=== PATIENT | male | born 1965 | race Caucasian/White ===

== ENCOUNTER → 2019-10-24 08:10 | Outpatient (BNVA) | payer MEDICARE, MEDICAID, SELFPAY | PROVIDERS: Family Provider Nurse Practitioner Family; PCP Nurse Practitioner Family; Visit Provider Nurse Practitioner Family | DX: R50.9 Fever, unspecified (principal); J06.9 Acute upper respiratory infection, unspecified; B97.89 Other viral agents as the cause of diseases classified elsewhere | CPT/HCPCS: 85025; 87081; 87804; 87880 ==

== ENCOUNTER → 2019-12-13 14:26 | Outpatient (BNVA) | payer MEDICARE, MEDICAID, SELFPAY | PROVIDERS: Family Provider Nurse Practitioner Family; PCP Nurse Practitioner Family; Visit Provider Nurse Practitioner Psychiatric/Mental Health | DX: F33.41 Major depressive disorder, recurrent, in partial remission (principal); F41.8 Other specified anxiety disorders; F41.1 Generalized anxiety disorder | CPT/HCPCS: 99213 ==

== ENCOUNTER → 2020-03-04 10:14 | Outpatient (BNVA) | payer MEDICARE, MEDICAID, SELFPAY | PROVIDERS: Family Provider Nurse Practitioner Family; PCP Nurse Practitioner Family; Visit Provider Nurse Practitioner | DX: K59.01 Slow transit constipation (principal); L25.9 Unspecified contact dermatitis, unspecified cause; G80.9 Cerebral palsy, unspecified; Z00.00 Encounter for general adult medical examination without abnormal findings; J30.2 Other seasonal allergic rhinitis; F41.1 Generalized anxiety disorder; Z13.6 Encounter for screening for cardiovascular disorders; Z12.5 Encounter for screening for malignant neoplasm of prostate; Z11.1 Encounter for screening for respiratory tuberculosis | CPT/HCPCS: 80053; 80061; 85025; G0103 ==

== ENCOUNTER → 2020-03-06 08:23 | Outpatient (BNVA) | payer MEDICARE, MEDICAID, SELFPAY | PROVIDERS: Family Provider Nurse Practitioner Family; PCP Nurse Practitioner Family; Visit Provider Nurse Practitioner | DX: K59.01 Slow transit constipation (principal) | CPT/HCPCS: 81000 ==

== ENCOUNTER 2020-04-08 18:15 | Inpatient (IN) | payer MEDICARE, MEDICAID, SELFPAY ==
[2020-04-08 18:16] VITALS: BP 122/88; PULSE 78; RESP 20; TEMP 36.7; O2SAT 91; BMI 21.7
--- NOTE | 2020-04-08 18:20 | XRR_ITS ---
PROCEDURE INFORMATION: Exam: XR Chest, 1 View Exam date and time: 04/08/2020 6:42 PM Age: 54 years old Clinical indication: Shortness of breath; Additional info: SOB TECHNIQUE: Imaging protocol: XR of the chest Views: 1 view. COMPARISON: CR Chest 1 view [id number] 07/17/2019 8:14 AM FINDINGS: Lungs: Lungs are well aerated without a focal area of consolidation. Pleural space: Unremarkable. No pleural effusion. No pneumothorax. Heart/Mediastinum: The cardiac silhouette appears enlarged, some of which is magnification related to the AP projection. Bones/joints: Unremarkable. XR/XR chest 1V portable [id number] IMPRESSION: Lungs are well aerated without a focal area of consolidation.
--- NOTE | 2020-04-08 18:21 | ECG_ITS ---
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 Measurements Intervals [place] Rate: 80 P: 35 OH: 142 QRS: -85 QRSD: 95 T: 51 QT: 378 QTc: 439 Interpretive Statements SINUS RHYTHM PATTERN CONSISTENT WITH PULMONARY DISEASE LEFT ANTERIOR FASCICULAR BLOCK [QRS AXIS <= -45, QR IN I, RS IN II] Compared to ECG 07/13/2019 04:36:00 Left anterior fascicular block now present Sinus bradycardia no longer present Left-axis deviation no longer present Electronically Signed On 04-09-2020 16:53:28 CDT by Torres Martini M.D. [email or web address]
--- NOTE | 2020-04-08 18:40 | W.ED.SOB ---
HPI - SOB/Dyspnea General: Chief Complaint: Shortness of Breath/Dyspnea Stated Complaint: POSS ASPIRATION Time Seen by Provider: 04/08/20 18:20 History of Present Illness: HPI Narrative: 54-year-old male with longstanding developmental delay and cerebral palsy. He presents with a fever of 100.9, cough, and shortness of breath. He told the staff members I do not feel well . Cough does not seem to be productive. He does have a history of aspiration. No known contact with COVID-19 positive patient. MD elicited complaint: shortness of breath and cough Pertinent past history: aspiration Onset (ago): hour(s) Context: recent illness Timing: constant Severity: moderate Relieving factors: oxygen Known history of: aspiration pneumonia Associated symptoms: Reports chest congestion, cough and fever(s); Deny chest pain, dizziness or nausea Treatment prior to arrival: bronchodilator Review of Systems Const: Reports: fever(s) and chills Eyes: Denies: change in vision or blurry vision ENMT: Denies: swelling of lips/tongue, epistaxis, post nasal drip or sinus pain Card: Denies: chest pain Resp: Reports: chest congestion GI: Denies: nausea : Denies: difficulty urinating, dysuria or hematuria Musc: Denies: neck pain or back pain Skin/Breast: Denies: rash, pruritus or erythema Neuro: Denies: headache(s) or dizziness Psych: Denies: anxiety PFSH ED PFSH: Medical History (Updated 04/08/20 @ 22:16 by Jadon Jones DO) Acute contact dermatitis Alopecia areata Cerebral palsy Chronic seasonal allergic rhinitis Generalized anxiety disorder Hiatal hernia Major depressive disorder, recurrent episode, in partial remission with anxious distress Slow transit constipation Surgical History (Updated 03/04/20 @ 10:12 by HARVINDER Finch) History of cholecystectomy 07/20/19 at [facility] [place] History of testicular surgery Family History Other Cancer Stroke Social History Smoking and tobacco status: never smoked Second hand smoke exposure: No Smoking risk assessment/counseling performed?: No Alcohol intake: never Desire information about alcohol rehabilitation?: No Counseling given: No Desire information about substance/drug rehabilitation?: No Counseling given: No Adopted: No Caregiver/support person: Yes Lives independently: No Household members: caregiver Housing: House Marital status: Single Number of children: 0 service: No Current occupational status: unemployed Pets and animals: Yes Pets & animals: cat(s) History of recent travel: No Sexually active: No Current gender identity: Female Physical Exam Const: GENERAL APPEARANCE: well developed ORIENTATION/CONSCIOUSNESS: Yes oriented to person and Yes oriented to place HENMT: COMMON NORMALS: normocephalic, external ears normal and Normal external nose present HEAD & SCALP: normocephalic NOSE: Normal external nose present and No nasal discharge present EXTERNAL EAR: Yes external ears normal MOUTH: tongue normal Eye: COMMON NORMALS: Equal, round and reactive pupils present, EOMs intact bilaterally and conjunctivae normal EYELID: eyelids normal CONJUNCTIVA: Yes conjunctivae normal PUPIL: Yes Equal, round and reactive pupils present Neck/C-Spine: GENERAL: No tracheal deviation Chest: COMMONS NORMALS: normal inspection of the chest CHEST: No tenderness Resp: COMMON NORMALS: clear to auscultation bilaterally EFFORT & INSPECTION: No tachypneic, No respiratory distress, No retractions, No uses accessory muscles and No tracheal deviation AUSCULTATION: clear to auscultation bilaterally, no rhonchi, no wheezes and diminished lung sounds Cardio: COMMON NORMALS: regular rate and regular rhythm RATE: regular rate RHYTHM: regular rhythm HEART SOUNDS: no murmurs PERIPHERAL PULSES: radial pulses present GI: INSPECTION: No abdominal distension AUSCULTATION: No Hyperactive bowel sounds present and No Hypoactive bowel sounds present PALPATION: No Guarding due to palpation present (GI) and No Rigid due to palpation PERCUSSION: no dullness to percussion and no tympanic to percussion Neuro: SENSORIUM/ORIENTATION: Yes oriented to person and Yes oriented to place Psych: OTHER: Baseline mental status Skin: COMMON NORMALS: no rashes or lesions noted GENERAL SKIN EXAM: no rashes or lesions noted Course Vital Signs: Vital signs: Vital Signs Temperature 98.2 F 04/08/20 19:59 Pulse Rate 89 04/08/20 21:40 Respiratory Rate 18 04/08/20 21:40 Blood Pressure 103/67 04/08/20 21:40 Pulse Oximetry 93 04/08/20 21:40 MDM - SOB/Dyspnea MDM Narrative: Medical decision making narrative: 54-year-old male presents significantly hypoxic. He has a history of aspiration. He has a right upper lobe infiltrate/pneumonitis on chest x-ray. He has an elevated white blood cell count. His d-dimer is negative. Procalcitonin is pending. Other laboratory is benign. He has been given Levaquin in the ER. Because of the severity of his hypoxia with infiltrate, temperature, and shortness of breath, he will undergo COVID testing and will be on COVID precautions until his test returns. Lab Data: Labs: Lab Results 04/08/20 04/08/20 04/08/20 Range/Units 18:33 18:33 18:33 WBC 11.6 H (4.0-10.0) 10^3/ uL RBC 5.76 H (4.1-5.3) 10^6/u L Hgb 16.2 (11.7-16.6) g/dL Hct 50.5 (42.0-52.0) % MCV 87.7 (80-94) fL MCH 28.1 (28.0-34.0) pg MCHC 32.1 (30.0-36.0) g/dL RDW 13.7 (12.1-15.1) % Plt Count 377 (130-400) 10^3/c mm MPV 10.1 (7.4-10.4) fL Neut % (Auto) 77.9 % Lymph % (Auto) 12.0 % Mcdowell % (Auto) 6.7 % Eos % (Auto) 2.2 % Baso % (Auto) 0.8 % Neut # (Auto) 9.1 H (1.8-7.7) 10^3/u L Lymph # (Auto) 1.4 (0.8-4.8) 10^3/u L Mcdowell # (Auto) 0.8 (0.2-0.9) 10^3/u L Eos # (Auto) 0.3 (0.0-0.8) 10^3/u L Baso # (Auto) 0.1 (0.0-0.1) 10^3/u L Nucleated RBC % (a uto) 0 % Nucleated RBCs # 0.0 /100WBC D-Dimer (0-0.59) ug/mIFE U Specimen Type Sample Site ABG pH (7.35-7.45) ABG pCO2 (35-45) mmHg ABG pO2 (80.0-100.0) mmH g ABG HCO3 (22-26) mmol/L ABG Base Excess (-2.0-2.0) mmol/ L Bryant Test Hematocrit (42-52) % Hgb O2 Saturation (95-100) % Carboxyhemoglobin (0.4-20.1) %THgb Methemoglobin (0.4-1.5) % Total Hemoglobin (14-18) g/dL O2 Delivery Device O2 Liters/Min % Activated Sludge Attendant ID Sodium 140 (136-145) mmol/L Potassium 4.7 (3.5-5.1) mmol/L Chloride 100 (98-107) mmol/L Carbon Dioxide 29 (22-29) mmol/L Anion Gap 15.7 (5-19) BUN 16 (6-20) mg/dL Creatinine 0.8 (0.7-1.2) mg/dL GFR Calculation 100.7 (90-130) mL/min Glucose 96 (65-115) mg/dL Calculated Osmolal ity 286 (285-295) mOsm/k g Lactic Acid 0.9 (0.5-2.2) mmol/L Calcium 9.9 (8.5-10.5) mg/dL Total Bilirubin 0.4 (0.15-1.2) mg/dL AST 30 (0-40) U/L ALT 33 (0-41) U/L Alkaline Phosphata se 153 H (40-130) IU/L Troponin T Baselin e (0-15) ng/L Troponin T 120 Min [place] (0-15) ng/L Delta Troponin T (0-10) ABS# NT-Pro-B Natriuret Pep 12 (0-125) pg/mL Total Protein 7.8 (6.6-8.7) g/dL Albumin 4.7 (3.5-5.2) g/dL Globulin 3.1 (1.3-4.6) g/dL 04/08/20 04/08/20 04/08/20 Range/Units 18:33 18:33 19:15 WBC (4.0-10.0) 10^3/ uL RBC (4.1-5.3) 10^6/u L Hgb (11.7-16.6) g/dL Hct (42.0-52.0) % MCV (80-94) fL MCH (28.0-34.0) pg MCHC (30.0-36.0) g/dL RDW (12.1-15.1) % Plt Count (130-400) 10^3/c mm MPV (7.4-10.4) fL Neut % (Auto) % Lymph % (Auto) % Mcdowell % (Auto) % Eos % (Auto) % Baso % (Auto) % Neut # (Auto) (1.8-7.7) 10^3/u L Lymph # (Auto) (0.8-4.8) 10^3/u L Mcdowell # (Auto) (0.2-0.9) 10^3/u L Eos # (Auto) (0.0-0.8) 10^3/u L Baso # (Auto) (0.0-0.1) 10^3/u L Nucleated RBC % (a uto) % Nucleated RBCs # /100WBC D-Dimer <= 0.27 (0-0.59) ug/mIFE U Specimen Type Arterial Sample Site Radial, left ABG pH 7.43 (7.35-7.45) ABG pCO2 38.9 (35-45) mmHg ABG pO2 102.0 H (80.0-100.0) mmH g ABG HCO3 25.7 (22-26) mmol/L ABG Base Excess 1.4 (-2.0-2.0) mmol/ L Bryant Test N/a Hematocrit 49.1 (42-52) % Hgb O2 Saturation 97.0 (95-100) % Carboxyhemoglobin 0.6 (0.4-20.1) %THgb Methemoglobin 0.8 (0.4-1.5) % Total Hemoglobin 16.0 (14-18) g/dL O2 Delivery Device Nc O2 Liters/Min 2.0 % Activated Sludge Attendant ID [id number] Sodium (136-145) mmol/L Potassium (3.5-5.1) mmol/L Chloride (98-107) mmol/L Carbon Dioxide (22-29) mmol/L Anion Gap (5-19) BUN (6-20) mg/dL Creatinine (0.7-1.2) mg/dL GFR Calculation (90-130) mL/min Glucose (65-115) mg/dL Calculated Osmolal ity (285-295) mOsm/k g Lactic Acid (0.5-2.2) mmol/L Calcium (8.5-10.5) mg/dL Total Bilirubin (0.15-1.2) mg/dL AST (0-40) U/L ALT (0-41) U/L Alkaline Phosphata se (40-130) IU/L Troponin T Baselin e 9 (0-15) ng/L Troponin T 120 Min [place] (0-15) ng/L Delta Troponin T (0-10) ABS# NT-Pro-B Natriuret Pep (0-125) pg/mL Total Protein (6.6-8.7) g/dL Albumin (3.5-5.2) g/dL Globulin (1.3-4.6) g/dL 04/08/20 Range/Units 20:12 WBC (4.0-10.0) 10^3/ uL RBC (4.1-5.3) 10^6/u L Hgb (11.7-16.6) g/dL Hct (42.0-52.0) % MCV (80-94) fL MCH (28.0-34.0) pg MCHC (30.0-36.0) g/dL RDW (12.1-15.1) % Plt Count (130-400) 10^3/c mm MPV (7.4-10.4) fL Neut % (Auto) % Lymph % (Auto) % Mcdowell % (Auto) % Eos % (Auto) % Baso % (Auto) % Neut # (Auto) (1.8-7.7) 10^3/u L Lymph # (Auto) (0.8-4.8) 10^3/u L Mcdowell # (Auto) (0.2-0.9) 10^3/u L Eos # (Auto) (0.0-0.8) 10^3/u L Baso # (Auto) (0.0-0.1) 10^3/u L Nucleated RBC % (a uto) % Nucleated RBCs # /100WBC D-Dimer (0-0.59) ug/mIFE U Specimen Type Sample Site ABG pH (7.35-7.45) ABG pCO2 (35-45) mmHg ABG pO2 (80.0-100.0) mmH g ABG HCO3 (22-26) mmol/L ABG Base Excess (-2.0-2.0) mmol/ L Bryant Test Hematocrit (42-52) % Hgb O2 Saturation (95-100) % Carboxyhemoglobin (0.4-20.1) %THgb Methemoglobin (0.4-1.5) % Total Hemoglobin (14-18) g/dL O2 Delivery Device O2 Liters/Min % Activated Sludge Attendant ID Sodium (136-145) mmol/L Potassium (3.5-5.1) mmol/L Chloride (98-107) mmol/L Carbon Dioxide (22-29) mmol/L Anion Gap (5-19) BUN (6-20) mg/dL Creatinine (0.7-1.2) mg/dL GFR Calculation (90-130) mL/min Glucose (65-115) mg/dL Calculated Osmolal ity (285-295) mOsm/k g Lactic Acid (0.5-2.2) mmol/L Calcium (8.5-10.5) mg/dL Total Bilirubin (0.15-1.2) mg/dL AST (0-40) U/L ALT (0-41) U/L Alkaline Phosphata se (40-130) IU/L Troponin T Baselin e (0-15) ng/L Troponin T 120 Min [place] 8.93 (0-15) ng/L Delta Troponin T -0.07 L (0-10) ABS# NT-Pro-B Natriuret Pep (0-125) pg/mL Total Protein (6.6-8.7) g/dL Albumin (3.5-5.2) g/dL Globulin (1.3-4.6) g/dL Discharge Plan Discharge Clinical Impression: Respiratory failure Qualifiers: Chronicity: acute Respiratory failure complication: hypoxia Qualified Code(s): J96.01 - Acute respiratory failure with hypoxia Pneumonia Qualifiers: Pneumonia type: due to unspecified organism Laterality: right Lung location: upper lobe of lung Qualified Code(s): J18.9 - Pneumonia, unspecified organism Condition: Stable Prescriptions: No Action (DME) Wrist Brace Misc See Rx Instructions .ROUTE .MEDSUPPLY Qty: 2 RF: 0 polyethylene glycol 3350 [Miralax] 17 gram/dose powder 17 gm PO QDAY RF: 0 docusate sodium [Colace] 100 mg capsule 100 mg PO BID RF: 0 albuterol sulfate [Ventolin HFA] 90 mcg/actuation HFA aerosol inhaler 2 puff INHALATION Q6H PRN (Reason: Shortness Of Breath) RF: 0 diphenhydramine HCl 25 mg capsule 50 mg PO BEDTIME RF: 0 buspirone 10 mg tablet 10 mg PO TID Qty: 90 RF: 6 fluoxetine [Prozac] 40 mg capsule 40 mg PO QAM Qty: 30 RF: 4 olanzapine [Zyprexa] 5 mg tablet 5 mg PO .bedtime Qty: 30 RF: 4 propranolol 10 mg tablet 10 mg PO TID Qty: 90 RF: 4 clonazepam [Klonopin] 1 mg tablet 1 mg PO TID Qty: 90 RF: 3 zolpidem [Ambien] 10 mg tablet 10 mg PO .bedtime Qty: 30 RF: 3 promethazine-DM 6.25-15 mg/5 mL Syrup 5 ml PO Q6H PRN (Reason: Cough) RF: 0 acetaminophen 325 mg Tablet 325 mg PO QID PRN (Reason: Pain) RF: 0 loratadine 10 mg Tablet 10 mg PO DAILY RF: 0 lactulose 10 gram/15 mL (15 mL) Solution 10 g PO DAILY PRN (Reason: Constipation) RF: 0 zinc oxide See Rx Instructions .ROUTE .COMPLEX RF: 0 Coding Level of Care Code ED Entry Level Programmer for Chg Fwd Exam Comprehensive
[2020-04-08 18:41] LABS: Basophils # 0.1 10^3/uL (0.0-0.1); Basophils % 0.8 %; Eosinophils # 0.3 10^3/uL (0.0-0.8); Eosinophils % 2.2 %; Hematocrit 50.5 % (42.0-52.0); Hemoglobin 16.2 g/dL (11.7-16.6); Lymphocytes # 1.4 10^3/uL (0.8-4.8); Mean Corpuscular HGB Conc 32.1 g/dL (30.0-36.0); Mean Corpuscular Hemoglobin 28.1 pg (28.0-34.0); Mean Corpuscular Volume 87.7 fL (80-94); Mean Platelet Volume 10.1 fL (7.4-10.4); Monocytes # 0.8 10^3/uL (0.2-0.9); Monocytes % 6.7 %; Neutrophils # 9.1 10^3/uL (1.8-7.7); Neutrophils % 77.9 %; Nucleated Red Blood Cells % 0 %; Platelet Count 377 10^3/cmm (130-400); Red Blood Count 5.76 10^6/uL (4.1-5.3); Red Cell Distribution Width 13.7 % (12.1-15.1); White Blood Count 11.6 10^3/uL (4.0-10.0)
[2020-04-08 18:56] LABS: Lactic Sepsis W/Reflex 0.9 mmol/L (0.5-2.2)
[2020-04-08 18:57] LABS: Troponin(5th) Baseline 9 ng/L (0-15)
[2020-04-08 19:04] LABS: Alanine Aminotransferase 33 U/L (0-41); Albumin Level 4.7 g/dL (3.5-5.2); Alkaline Phosphatase 153 IU/L (40-130); Anion Gap 15.7 (5-19); Aspartate Amino Transferase 30 U/L (0-40); Blood Urea Nitrogen 16 mg/dL (6-20); Calcium 9.9 mg/dL (8.5-10.5); Carbon Dioxide 29 mmol/L (22-29); Chloride 100 mmol/L (98-107); Globulin 3.1 g/dL (1.3-4.6); Glomerular Filtration Rate 100.7 mL/min (90-130); Glucose 96 mg/dL (65-115); NT Pro B Type Natriuretic Pept 12 pg/mL (0-125); Osmolality Calculated 286 mOsm/kg (285-295); Potassium 4.7 mmol/L (3.5-5.1); Sodium 140 mmol/L (136-145); Total Bilirubin 0.4 mg/dL (0.15-1.2); Total Protein 7.8 g/dL (6.6-8.7)
[2020-04-08 19:22] LABS: ABG PCO2 38.9 mmHg (35-45); ABG PH Result 7.43 (7.35-7.45); Arterial Blood Gas Hematocrit 49.1 % (42-52); Base Excess ABG 1.4 mmol/L (-2.0-2.0); Blood Gas Sample Site Radial, left; Blood Gas Sample Type Arterial; Carboxyhemoglobin 0.6 %THgb (0.4-20.1); HCO3 ABG 25.7 mmol/L (22-26); Methemoglobin 0.8 % (0.4-1.5); Oxygen Device NC
[2020-04-08 19:59] VITALS: BP 118/72; PULSE 88; RESP 24; TEMP 36.8; O2SAT 86
[2020-04-08 20:40] LABS: Troponin 5 2HR 8.93 ng/L (0-15)
[2020-04-08 20:47] LABS: Troponin 5 2HR Delta -0.07 ABS# (0-10)
[2020-04-08 21:01] LABS: D Dimer <= 0.27 ug/mIFEU (0-0.59)
[2020-04-08 21:24] VITALS: BP 121/86; PULSE 88; RESP 20; O2SAT 94
[2020-04-08] MEDS: levofloxacin-dextrose 5 % 750 MG/150 ML PREMIX 100 MG IV (21:39)
[2020-04-08 21:40] VITALS: BP 103/67; PULSE 89; RESP 18; O2SAT 93
[2020-04-08 23:30] VITALS: BP 111/70; PULSE 82; RESP 20; O2SAT 90
[2020-04-09] VITALS (14 sets, daily range): BP systolic 91–114; BP diastolic 55–72; PULSE 61–106; RESP 16–20; TEMP 36.2–37.4; O2SAT 91–98
[2020-04-09] MEDS: CLONazepam 1 mg Tablet PO ×4 (00:01→22:13)
--- NOTE | 2020-04-09 00:02 | PM.HP ---
Providers/Chief Complaint Admitting Physician: Suki Duckworth MD Chief Complaint: POSS ASPIRATION History of Present Illness Arturo Schwartz is a 54 year old male who presented from nursing home with low oxygen levels and concerned that he might of aspirated. According to his caregiver, he seemed okay when she first came to work today. Around 430 or so he however told her that he was not feeling well. She stated that he did not look very good at the time. He always has some degree of drainage but has had a productive cough more so than usual. She checked his oxygen saturations and they were running 88 to 92% on room air. Blood pressure was 106/54 and pulse was in the mid 60s. He had a low-grade fever at 100.9. She gave him some Tylenol and a breathing treatment but he did not really seem to do much better. He is generally not 1 who complains. After watching him for a while he was ultimately brought in for further evaluation. In the emergency room chest x-ray showed what looks to be right upper lobe infiltrate. He received some Levaquin. He is not normally on oxygen therapy but is currently requiring 3 L to maintain saturations in the low 90s. COVID testing was collected in the emergency room. He has not been witnessed vomiting but he has had an aspiration event and aspiration pneumonia in the past. At baseline, patient does talk but his speech can be a little hard to understand at times. He will not talk to you if he is not happy and he will laugh and smile if he likes your is happy. He can use a urinal if it is left within easy reach for him on the bedside rail. He can feed himself but will not eat soft or pur?ed foods. He is bedbound. He requires assistance with a lot of activities of daily living. Review of Systems General: Reports: 10 or more systems reviewed and unremarkable except in HPI and below Const: Reports: fever(s) and malaise ENMT: Reports: nasal discharge Card: Denies: chest pain Resp: Reports: dyspnea, productive cough and non-productive cough; Denies: hemoptysis GI: Reports: constipation; Denies: vomiting or diarrhea : Denies: dysuria Musc: Reports: deformity (Chronically contracted) Skin/Breast: Denies: sores or lesions Neuro: Reports: involuntary movements Psych: Reports: anxiety and depression Medications/Allergies Home Medications Medication Instructions Recorded Confirmed Last Taken Type albuterol sulfate 90 mcg/actuation 2 puff INHALATION Q6H PRN 10/24/19 04/08/20 Unknown History aerosol inhaler diphenhydramine HCl 25 mg capsule 50 mg PO BEDTIME cap 10/24/19 04/08/20 04/07/20 History docusate sodium 100 mg capsule 100 mg PO BID 10/24/19 04/08/20 04/08/20 History polyethylene glycol 3350 17 17 gm PO QDAY 10/24/19 04/08/20 04/08/20 History gram/dose oral powder buspirone 10 mg tablet 10 mg PO TID #90 tab 01/22/20 04/08/20 04/08/20 Rx clonazepam 1 mg tablet 1 mg PO TID #90 tab 01/22/20 04/08/20 04/08/20 Rx fluoxetine 40 mg capsule 40 mg PO QAM #30 cap 01/22/20 04/08/20 04/08/20 Rx olanzapine 5 mg tablet 5 mg PO .bedtime #30 tab 01/22/20 04/08/20 04/07/20 Rx propranolol 10 mg tablet 10 mg PO TID #90 tab 01/22/20 04/08/20 04/08/20 Rx zolpidem 10 mg tablet 10 mg PO .bedtime #30 tab 01/22/20 04/08/20 04/07/20 Rx arm brace #2 each 03/04/20 04/08/20 Unknown Rx acetaminophen 325 mg PO QID PRN 04/08/20 04/08/20 Unknown History lactulose 10 g PO DAILY PRN 04/08/20 04/08/20 Unknown History loratadine 10 mg PO DAILY 04/08/20 04/08/20 04/08/20 History promethazine-DM 5 ml PO Q6H PRN 04/08/20 04/08/20 Unknown History zinc oxide See Rx Instructions .ROUTE .COMPLEX 04/08/20 04/08/20 Unknown History Allergies Allergy/AdvReac Type Severity Reaction Status Date / Time No Known Allergies Allergy Verified 04/08/20 18:46 PFSH Acute PFSH: Medical History Acute contact dermatitis Alopecia areata Cerebral palsy Chronic seasonal allergic rhinitis Generalized anxiety disorder Hiatal hernia Major depressive disorder, recurrent episode, in partial remission with anxious distress Slow transit constipation Surgical History [place] [facility] [place] of [place] surgery Family History Other Cancer Stroke Social History Smoking and tobacco status: never smoked Second hand smoke exposure: No Smoking risk assessment/counseling performed?: No Alcohol intake: never Desire information about alcohol rehabilitation?: No Counseling given: No Desire information about substance/drug rehabilitation?: No Counseling given: No Adopted: No Caregiver/support person: Yes Lives independently: No Household members: caregiver Housing: House Marital status: Single Number of children: 0 service: No Current occupational status: unemployed Pets and animals: Yes Pets & animals: cat(s) History of recent travel: No Sexually active: No Current gender identity: Female Vitals/I&O/Wt Last Vital Signs Temp 98.2 F 04/08/20 19:59 Pulse 82 04/08/20 23:30 Resp 20 H 04/08/20 23:30 BP 111/70 04/08/20 23:30 Pulse Ox 90 04/08/20 23:30 Weight last 48 hrs Weight 53.977 kg Data : 04/09/20 03:23 04/09/20 03:23 Other Labs: Laboratory Tests 04/08/20 18:33 D-Dimer <= 0.27 Liver Function 04/08/20 04/09/20 Range/Units 18:33 03:23 Total Bilirubin 0.4 0.4 (0.15-1.2) mg/dL AST 30 36 (0-40) U/L ALT 33 38 (0-41) U/L Alkaline Phosphatase 153 H 161 H (40-130) IU/L Albumin 4.7 4.5 (3.5-5.2) g/dL Micro: Microbiology 04/08/20 18:33 Blood Culture - Preliminary Blood SPECIMEN COLLECTED 04/08/20 18:34 Blood Culture - Preliminary Blood SPECIMEN COLLECTED A&P Assessment and plan (1) Pneumonia: With significant hypoxemia noted in the emergency room. ABG was done after he had been on some oxygen for a bit. Their PO2 was just above the normal range. Oxygen saturations were reading lower. I suspect there is some discrepancy with oxygen saturations picking up accurately but even at times he is a good waveform sats are low. His cough is not as bad after treatments received in the emergency room. Status: Acute Qualifiers: Laterality: right Lung location: upper lobe of lung Pneumonia type: due to unspecified organism Qualified Code(s): J18.9 - Pneumonia, unspecified organism (2) Cerebral palsy: Status: Chronic Qualifiers: Cerebral palsy type: spastic quadriplegic Qualified Code(s): G80.0 - Spastic quadriplegic cerebral palsy (3) Slow transit constipation: Status: Chronic (4) Generalized anxiety disorder: Status: Chronic Additional A&P Information Inpatient admission Continue IV antibiotics Continue breathing treatments He received steroids in the emergency room, I have not continue them but could be considered Follow-up official chest x-ray interpretation Oxygen therapy, weaning as needed Has had speech evaluations in the past that did not reveal evidence of aspiration according to caregiver. He normally eats a regular diet and will refuse to eat thickened or pur?ed type foods. Check hemoglobin A1c with elevated blood sugars We will encourage general aspiration type precautions Follow-up pending COVID testing Add ppi Add lactobacillus We will going to give a dose of lactulose today as he has not had a bowel movement for several days Supportive care otherwise Full code Guardian is Osiris Vargas Currently anticipate disposition back to nursing home. Question is the need for oxygen therapy. Attestations Medical Necessity Statement*: Anticipated stay greater than 2 midnights in a patient requiring oxygen therapy is not normally on it. He has evidence of what looks to be pneumonia on the right on chest x-ray. Plans are as noted. Coding Level of Care Code Acute Home Health Care Coordinator for Manuelg Fwd Diagnoses Pneumonia J18.9 Laterality: right Lung location: upper lobe of lung Pneumonia type: due to unspecified organism Cerebral palsy G80.0 Cerebral palsy type: spastic quadriplegic Slow transit constipation K59.01 Generalized anxiety disorder F41.1
[2020-04-09 01:08] LABS: Troponin 5 6HR 6.77 ng/L (0-15)
[2020-04-09 01:10] LABS: Troponin 5 6HR Delta -2.23 ng/L (0-12)
[2020-04-09 01:51] LABS: Procalcitonin 0.06 ng/mL (0-0.5)
[2020-04-09] MEDS: ipratropium-albuterol 3 mL Neb INHALATION ×4 (02:49→20:55)
[2020-04-09] MEDS: enoxaparin 40 mg/0.4 mL Syringe SUBCUT (03:47)
[2020-04-09] MEDS: levofloxacin-dextrose 5 % 750 MG/150 ML PREMIX 100 MG IV (03:47)
[2020-04-09] MEDS: sodium chloride 0.9% 1,000 ML 100 ML IV ×2 (03:47→16:43)
[2020-04-09 04:27] LABS: Basophils % 0.3 %; Eosinophils % 0.1 %; Hemoglobin 15.6 g/dL (11.7-16.6); Lymphocytes # 0.4 10^3/uL (0.8-4.8); Lymphocytes % 4.3 %; Mean Corpuscular HGB Conc 32.5 g/dL (30.0-36.0); Mean Corpuscular Hemoglobin 28.5 pg (28.0-34.0); Mean Corpuscular Volume 87.6 fL (80-94); Mean Platelet Volume 10.6 fL (7.4-10.4); Monocytes # 0.1 10^3/uL (0.2-0.9); Monocytes % 0.8 %; Neutrophils # 9.1 10^3/uL (1.8-7.7); Nucleated Red Blood Cells % 0 %; Platelet Count 338 10^3/cmm (130-400); Red Blood Count 5.48 10^6/uL (4.1-5.3); Red Cell Distribution Width 13.5 % (12.1-15.1); White Blood Count 9.6 10^3/uL (4.0-10.0)
[2020-04-09 05:15] LABS: Alanine Aminotransferase 38 U/L (0-41); Albumin Level 4.5 g/dL (3.5-5.2); Alkaline Phosphatase 161 IU/L (40-130); Anion Gap 18.2 (5-19); Aspartate Amino Transferase 36 U/L (0-40); Blood Urea Nitrogen 13 mg/dL (6-20); Calcium 9.3 mg/dL (8.5-10.5); Carbon Dioxide 23 mmol/L (22-29); Chloride 100 mmol/L (98-107); Globulin 3.5 g/dL (1.3-4.6); Glomerular Filtration Rate 140.4 mL/min (90-130); Glucose 143 mg/dL (65-115); Osmolality Calculated 283 mOsm/kg (285-295); Potassium 4.2 mmol/L (3.5-5.1); Sodium 137 mmol/L (136-145); Total Bilirubin 0.4 mg/dL (0.15-1.2)
[2020-04-09] MEDS: polyethylene glycol 3350 Pkt 17 gm PO (09:14)
[2020-04-09] MEDS: fluoxetine 20 mg Capsule 40 MG PO (09:15)
[2020-04-09] MEDS: loratadine 10 mg Tablet PO (09:15)
[2020-04-09] MEDS: docusate sodium 100 mg Capsule PO ×2 (09:15→18:29)
[2020-04-09] MEDS: BuSPIRONE 10 mg Tablet PO ×3 (09:15→22:13)
[2020-04-09] MEDS: lactobacillus 1 Tablet 1 TAB PO ×2 (10:33→18:29)
[2020-04-09] MEDS: pantoprazole DR 40 mg Tablet PO (10:34)
[2020-04-09] MEDS: propranolol 20 mg Tablet 10 MG PO ×3 (10:35→22:13)
--- NOTE | 2020-04-09 12:04 | PC.CHAP ---
Pastoral Care Encounter/Spiritual Assessment Type of Contact [] Declined environmental compliance officer visit [] Patient/Family/Request visit [] Outpatient visit [] Follow-up visit [] Physician referral [] Code/Alert [] Routine visit [] Staff referral [] Actively dying [] Patient sleeping [] Family support [] [] Out of room [] Palliative care [] [] Receiving care in room [] Pre-surgical visit [] Trauma [] Long length of stay [] ICU visit [x] Other: Isolation Relational/Emotional Strength [] Patient feels connected with others/family/visitors/staff [] Distress [] Loneliness/isolation [] Abandonment Spirituality of Patient [] Person of Nayana [] Attends Christian of their Nayana [] Believes in Prayer [] Reads Bible or Restorationism materials [] There are Spiritual issues to be addressed Senior Planning Manager Interventions [] Prayer [] Active listening [] Non-anxious presence [] Spiritual/emotional support [] Crisis/trauma care [] Spiritual counseling [] Bereavement support [] Provided bereavement packet [] Provided Bible/devotional materials [] Provided toy/stuffed animal, coloring book to patient or family member [] Provided Communion [] Anointing/[place] [] Salvation [] Completed spiritual assessment [] Other: Impact on Illness or Injury [] Angry [] Fearful [] Anxious [] Often cries [] Exhaustion [] Unable to work [] Unable to attend sabianism [] Unable to walk/stand [] Unable to read [] Unable to drive [] Unable to eat/drink [] Unable to sleep [] Unable to be with family [] Patient intubated [] Other: Summary Isolation Time spent with patient 5 mins
--- NOTE | 2020-04-09 13:27 | PM.PN ---
Subjective Subjective: Interval history: History and physical reviewed. Patient unable to give any further history, but can answer yes or no Medications: Reviewed: Yes Vitals/I&O/Wt Last Vital Signs Temp 97.2 F L 04/09/20 11:03 Pulse 96 04/09/20 11:00 Resp 18 04/09/20 11:00 BP 102/55 04/09/20 11:00 Pulse Ox 93 04/09/20 11:00 04/08/20 04/09/20 04/09/20 22:59 06:59 14:59 Intake Total 240 / 240 Output Total 200 / 200 400 / 400 Balance -200 / -200 -160 / -160 Weight last 48 hrs Weight 53.977 kg Physical Exam Narrative: EXAM NARRATIVE: General exam is a adult male, in no distress Cardiovascular regular rate and rhythm with 2/6 systolic murmur Lungs few coarse breath sounds bilaterally Abdomen is soft with positive bowel sounds Extremities contractures noted Data : 04/09/20 03:23 04/09/20 03:23 Micro: Microbiology 04/08/20 18:33 Blood Culture - Preliminary Blood SPECIMEN COLLECTED 04/08/20 18:34 Blood Culture - Preliminary Blood SPECIMEN COLLECTED A&P Assessment and plan (1) Pneumonia: Clinically appears to have pneumonia. Continue IV Levaquin Wean oxygen as tolerated Await COVID testing Continue nebs D-dimer was negative Repeat chest x-ray tomorrow Status: Acute Qualifiers: Laterality: right Lung location: upper lobe of lung Pneumonia type: due to unspecified organism Qualified Code(s): J18.9 - Pneumonia, unspecified organism (2) Cerebral palsy: Status: Chronic Qualifiers: Cerebral palsy type: spastic quadriplegic Qualified Code(s): G80.0 - Spastic quadriplegic cerebral palsy (3) Slow transit constipation: Continue home medications Status: Chronic (4) Generalized anxiety disorder: Continue home medications Status: Chronic Additional A&P Information Reduce fluids slightly Has had speech evaluations in the past that did not reveal evidence of aspiration according to caregiver. He normally eats a regular diet and will refuse to eat thickened or pur?ed type foods. Full code Lovenox for DVT prophylaxis Guardian is Osiris Whaley Medical Necessity Statement*: Needs continued hospitalization for IV antibiotics secondary to pneumonia Coding Level of Care Code Acute Managed Services Sales Consultant for [facility] Fwd Diagnoses Pneumonia J18.9 Laterality: right Lung location: upper lobe of lung Pneumonia type: due to unspecified organism Cerebral palsy G80.0 Cerebral palsy type: spastic quadriplegic Slow transit constipation K59.01 Generalized anxiety disorder F41.1
[2020-04-09 15:09] LABS: Coronavirus Lab Test PTC NOT DETECTED
--- NOTE | 2020-04-09 15:20 | PC.NURSE ---
notified , charge nurse and care nurse that patient is negative for covid
[2020-04-09] MEDS: OLANZapine 5 mg TABLET PO (22:13)
[2020-04-09] MEDS: diphenhydrAMINE 25 mg Capsule 50 MG PO (22:14)
[2020-04-10] VITALS (10 sets, daily range): BP systolic 83–121; BP diastolic 53–82; PULSE 51–74; RESP 16–18; TEMP 36.6–37.1; O2SAT 96–98
[2020-04-10] MEDS: ipratropium-albuterol 3 mL Neb INHALATION ×2 (01:32→09:21)
[2020-04-10] MEDS: levofloxacin-dextrose 5 % 750 MG/150 ML PREMIX 100 MG IV (02:19)
[2020-04-10] MEDS: sodium chloride 0.9% 1,000 ML 100 ML IV (02:19)
[2020-04-10] MEDS: enoxaparin 40 mg/0.4 mL Syringe SUBCUT (02:21)
[2020-04-10 05:23] LABS: Basophils % 0.6 %; Eosinophils # 0.1 10^3/uL (0.0-0.8); Eosinophils % 1.4 %; Hematocrit 40.8 % (42.0-52.0); Hemoglobin 13.1 g/dL (11.7-16.6); Lymphocytes # 2.2 10^3/uL (0.8-4.8); Lymphocytes % 33.6 %; Mean Corpuscular HGB Conc 32.1 g/dL (30.0-36.0); Mean Corpuscular Hemoglobin 28.9 pg (28.0-34.0); Mean Corpuscular Volume 89.9 fL (80-94); Mean Platelet Volume 10.2 fL (7.4-10.4); Monocytes % 14.7 %; Neutrophils # 3.3 10^3/uL (1.8-7.7); Neutrophils % 48.9 %; Nucleated Red Blood Cells % 0 %; Platelet Count 280 10^3/cmm (130-400); Red Blood Count 4.54 10^6/uL (4.1-5.3); Red Cell Distribution Width 14.2 % (12.1-15.1); White Blood Count 6.7 10^3/uL (4.0-10.0)
[2020-04-10 05:59] LABS: Anion Gap 11.2 (5-19); Blood Urea Nitrogen 14 mg/dL (6-20); Calcium 8.7 mg/dL (8.5-10.5); Carbon Dioxide 28 mmol/L (22-29); Chloride 108 mmol/L (98-107); Glomerular Filtration Rate 117.5 mL/min (90-130); Glucose 95 mg/dL (65-115); Magnesium 2.2 mg/dL (1.7-2.3); Osmolality Calculated 292 mOsm/kg (285-295); Potassium 4.2 mmol/L (3.5-5.1); Sodium 143 mmol/L (136-145)
[2020-04-10 06:03] LABS: Estmated Average Glucose 111; Hemoglobin A1C 5.5 % (4.0-6.0)
--- NOTE | 2020-04-10 07:33 | XRR_ITS ---
PROCEDURE INFORMATION: Exam: XR Chest, 1 View Exam date and time: 04/10/2020 7:34 AM Age: 54 years old Clinical indication: Other: Hypoxia TECHNIQUE: Imaging protocol: XR of the chest Views: 1 view. COMPARISON: CR XR chest 1V portable [id number] 04/08/2020 6:31 PM FINDINGS: Lungs: Mild interstitial prominence diffusely. No focal infiltrate. Correlate. Pleural space: Unremarkable. No pleural effusion. No pneumothorax. Heart/Mediastinum: Unremarkable. No cardiomegaly. Bones/joints: Unremarkable. XR/XR chest 1V portable [id number] IMPRESSION: Mild interstitial prominence diffusely. No focal infiltrate. Correlate. Consider CT chest if indicated.
[2020-04-10] MEDS: CLONazepam 1 mg Tablet PO (08:27)
[2020-04-10] MEDS: fluoxetine 20 mg Capsule 40 MG PO (08:27)
[2020-04-10] MEDS: docusate sodium 100 mg Capsule PO (08:27)
[2020-04-10] MEDS: lactobacillus 1 Tablet 1 TAB PO (08:27)
[2020-04-10] MEDS: BuSPIRONE 10 mg Tablet PO (08:28)
[2020-04-10] MEDS: pantoprazole DR 40 mg Tablet PO (08:28)
[2020-04-10] MEDS: loratadine 10 mg Tablet PO (08:28)
[2020-04-10] MEDS: propranolol 20 mg Tablet 10 MG PO (08:32)
[2020-04-10] MEDS: polyethylene glycol 3350 Pkt 17 gm PO (08:34)
--- NOTE | 2020-04-10 10:07 | PC.RESP ---
Pt 95% on room air.
--- NOTE | 2020-04-10 12:00 | PM.DCS ---
Discharge Providers Date of Admission: 04/08/20 22:14 Date of Discharge: April 10, 2020 Attending Provider at Admission: Suki Duckworth MD Attending Provider at Discharge: Chirag Helm MD Diagnoses at Discharge Discharge Diagnosis (1) Pneumonia: Status: Acute Problem details: Clinically improved. Off oxygen. Afebrile. White blood cell count normal. Qualifiers: Laterality: right Lung location: upper lobe of lung Pneumonia type: due to unspecified organism Qualified Code(s): J18.9 - Pneumonia, unspecified organism (2) Cerebral palsy: Status: Chronic Qualifiers: Cerebral palsy type: spastic quadriplegic Qualified Code(s): G80.0 - Spastic quadriplegic cerebral palsy (3) Slow transit constipation: Status: Chronic (4) Generalized anxiety disorder: Status: Chronic Reason for Visit Reason for Visit: POSS ASPIRATION Hospital Course Hospital Course: Arturo is a 54-year-old white male who presented to the hospital with history of fever, lower oxygen levels, with concerns of possible aspiration. Chest x-ray was officially read as no infiltrate, but clinically there was concern for pneumonia. He was placed in the hospital on IV Levaquin. Oxygen was given as needed and he was followed closely. Regular diet was continued as patient refused to eat anything else but aspiration precautions were taken. He received some breathing treatments as he does at home. Throughout the course of his hospital stay he improved, weaning off oxygen. Repeat chest x-ray showed some bibasilar infiltrates consistent with pneumonia. COVID testing was done which was negative. At discharge she had been afebrile during his hospital stay. His white blood cell count was normal. He was not requiring oxygen. It was thought he could be discharged home, follow-up with his primary care provider in 3 to 5 days, finish up 7 days of Levaquin, and aspiration precautions. Physical Exam Narrative: EXAM NARRATIVE: General exam no apparent distress Cardiovascular regular rate and rhythm without murmur Lungs clear Abdomen is soft with positive bowel sounds Extremities no cyanosis clubbing. Contractures noted. Discharge Data Data Completed and Pending: Completed Studies During Hospitalization Category Date Time Status XR chest 1V adonay ble [id number] Routine Exams 04/10/20 07:33 Completed XR chest 1V adonay ble [id number] Urgent Exams 04/08/20 18:20 Completed Pending at discharge Category Date Time Status Blood Culture Sta t Lab 04/08/20 18:33 Results Sputum Culture an d Gram Stain Stat Lab 04/08/20 18:21 Uncollected Labs from last 24 hours 04/10/20 04/10/20 04/10/20 04:43 04:43 04:43 WBC 6.7 RBC 4.54 Hgb 13.1 Hct 40.8 L MCV 89.9 MCH 28.9 MCHC 32.1 RDW 14.2 Plt Count 280 MPV 10.2 Neut % (Auto) 48.9 Lymph % (Auto) 33.6 [place] % (Auto) 14.7 Eos % (Auto) 1.4 Baso % (Auto) 0.6 Neut # (Auto) 3.3 Lymph # (Auto) 2.2 [place] # (Auto) 1.0 H Eos # (Auto) 0.1 Baso # (Auto) 0.0 Nucleated RBC % (a uto) 0 Nucleated RBCs # 0.0 Sodium 143 Potassium 4.2 Chloride 108 H Carbon Dioxide 28 Anion Gap 11.2 BUN 14 Creatinine 0.7 GFR Calculation 117.5 Glucose 95 Estimat Average Gl ucose 111 Hemoglobin A1c 5.5 Calculated Osmolal ity 292 Calcium 8.7 Magnesium 2.2 Nasal/Oral COVID-1 9 PCR 04/09/20 00:07 WBC RBC Hgb Hct MCV MCH MCHC RDW Plt Count MPV Neut % (Auto) Lymph % (Auto) [place] % (Auto) Eos % (Auto) Baso % (Auto) Neut # (Auto) Lymph # (Auto) [place] # (Auto) Eos # (Auto) Baso # (Auto) Nucleated RBC % (a uto) Nucleated RBCs # Sodium Potassium Chloride Carbon Dioxide Anion Gap BUN Creatinine GFR Calculation Glucose Estimat Average Gl ucose Hemoglobin A1c Calculated Osmolal ity Calcium Magnesium Nasal/Oral COVID-1 9 PCR Not detected Vitals: Last Vital Signs Temp 98.7 F 04/10/20 11:54 Pulse 70 04/10/20 11:54 Resp 18 04/10/20 11:54 BP 121/82 04/10/20 11:54 Pulse Ox 96 04/10/20 11:54 Discharge Plan Discharge Patient Disposition: Home, Self-Care Condition: Stable Prescriptions: New levofloxacin [Levaquin] 750 mg tablet 750 mg PO DAILY 7 Days Qty: 7 RF: 0 Continued (DME) Wrist Brace Misc See Rx Instructions .ROUTE .MEDSUPPLY Qty: 2 RF: 0 polyethylene glycol 3350 [Miralax] 17 gram/dose powder 17 gm PO QDAY RF: 0 docusate sodium [Colace] 100 mg capsule 100 mg PO BID RF: 0 albuterol sulfate [Ventolin HFA] 90 mcg/actuation HFA aerosol inhaler 2 puff INHALATION Q6H PRN (Reason: Shortness Of Breath) RF: 0 diphenhydramine HCl 25 mg capsule 50 mg PO BEDTIME RF: 0 buspirone 10 mg tablet 10 mg PO TID Qty: 90 RF: 6 fluoxetine [Prozac] 40 mg capsule 40 mg PO QAM Qty: 30 RF: 4 olanzapine [Zyprexa] 5 mg tablet 5 mg PO .bedtime Qty: 30 RF: 4 propranolol 10 mg tablet 10 mg PO TID Qty: 90 RF: 4 clonazepam [Klonopin] 1 mg tablet 1 mg PO TID Qty: 90 RF: 3 zolpidem [Ambien] 10 mg tablet 10 mg PO .bedtime Qty: 30 RF: 3 promethazine-DM 6.25-15 mg/5 mL Syrup 5 ml PO Q6H PRN (Reason: Cough) RF: 0 acetaminophen 325 mg Tablet 325 mg PO QID PRN (Reason: Pain) RF: 0 loratadine 10 mg Tablet 10 mg PO DAILY RF: 0 lactulose 10 gram/15 mL (15 mL) Solution 10 g PO DAILY PRN (Reason: Constipation) RF: 0 zinc oxide See Rx Instructions .ROUTE .COMPLEX RF: 0 Discharge Orders: Discharge Order (Routine); Ordered 04/10/20 Ordered By: Chirag Helm Discharge Diet: Usual diet Discharge Activity: Increase activity as tolerated Activity Restrictions/Additional Instructions: Please arrange follow-up with primary care provider 3 to 5 days Aspiration precautions Discharge Attestations Time Spent in Discharge Care*: greater than 30 min Quality Metrics Clinical Quality Measures During this hospital stay, did patient experience: None Coding Level of Care Code Acute Investor Relations Coordinator for [facility] Fwd Diagnoses Pneumonia J18.9 Laterality: right Lung location: upper lobe of lung Pneumonia type: due to unspecified organism Cerebral palsy G80.0 Cerebral palsy type: spastic quadriplegic Slow transit constipation K59.01 Generalized anxiety disorder F41.1
--- NOTE | 2020-04-10 12:57 | PC.NURSE ---
Report called to Keely Sibley at this time. [phone]
--- NOTE | 2020-04-10 14:10 | PC.NURSE ---
Discharge instructions reviewed with patient and Elham Solis school traffic supervisor at patient's home where he lives. Patient is alert to self. IV removed intact.
== END 2020-04-10 14:20 | disposition home or self-care (01) | DRG 193 ==
LOC: ER 22:11 → MEDSURG 23:27
PROVIDERS: Emergency Medicine; Admitting Provider Hospitalist; Visit Provider Internal Medicine
DX: J18.9 Pneumonia, unspecified organism (principal); G80.0 Spastic quadriplegic cerebral palsy; K59.01 Slow transit constipation; F41.1 Generalized anxiety disorder; L25.9 Unspecified contact dermatitis, unspecified cause; J30.2 Other seasonal allergic rhinitis; F33.41 Major depressive disorder, recurrent, in partial remission; Z20.828 Contact with and (suspected) exposure to other viral communicable diseases
CPT/HCPCS: 12345; 36415; 36600; 71045; 80048; 80053; 82805; 83036; 83605; 83735; 83880; 84145; 84484; 85025; 85378; 87040; 87635; 93005; 94640; 96372; 96375; 99284; J1650; J1956; J2930; J7030

== ENCOUNTER → 2020-04-24 07:40 | Outpatient (BNVA) | payer MEDICARE, MEDICAID, SELFPAY | PROVIDERS: Visit Provider Nurse Practitioner Psychiatric/Mental Health | DX: F33.41 Major depressive disorder, recurrent, in partial remission (principal); F41.8 Other specified anxiety disorders; F41.1 Generalized anxiety disorder | CPT/HCPCS: 99213 ==

== ENCOUNTER 2020-04-25 12:48 | Outpatient (CLI) | payer MEDICARE, MEDICAID, SELFPAY ==
--- NOTE | 2020-04-25 12:59 | XR_ITS ---
WS: [id number] AP upright chest, 04/25/2020 Clinical Data: pneumonia Comparison: Portable chest, 04/10/2020. Findings: No nodules, masses or effusions are seen. The heart is normal. The pulmonary vascularity is not remarkable. No pneumonia or pneumothorax is present. There is minimal left basilar atelectasis. There is a dextroscoliosis of the thoracic spine. There are clips in the right upper quadrant from a cholecystectomy. XR/XR chest 2V* [id number] Impression: Negative chest.
== END 2020-04-25 12:49 | disposition home or self-care (01) ==
LOC: RAD 12:55
PROVIDERS: PCP Nurse Practitioner Family; Visit Provider Nurse Practitioner
DX: J18.9 Pneumonia, unspecified organism (principal)
CPT/HCPCS: 71046

== ENCOUNTER → 2020-08-28 07:33 | Outpatient (BNVA) | payer MEDICARE, MEDICAID, SELFPAY | PROVIDERS: PCP Nurse Practitioner Family; Visit Provider Nurse Practitioner Psychiatric/Mental Health | DX: F33.41 Major depressive disorder, recurrent, in partial remission (principal); F41.8 Other specified anxiety disorders; F41.1 Generalized anxiety disorder | CPT/HCPCS: 99213 ==

== ENCOUNTER → 2020-11-12 16:33 | Outpatient (BNVA) | payer MEDICARE, MEDICAID, SELFPAY | PROVIDERS: PCP Nurse Practitioner Family; Visit Provider Nurse Practitioner | DX: R15.9 Full incontinence of feces (principal) | CPT/HCPCS: 74018; 80053; 85025 ==

== ENCOUNTER → 2020-12-05 11:45 | Outpatient (BNVA) | payer MEDICARE, MEDICAID, SELFPAY | PROVIDERS: PCP Nurse Practitioner Family; Visit Provider Nurse Practitioner | DX: K59.01 Slow transit constipation (principal); K56.7 Ileus, unspecified; Q65.89 Other specified congenital deformities of hip | CPT/HCPCS: 74018 ==

== ENCOUNTER 2020-12-30 15:13 | Emergency (ER) | payer MEDICARE, MEDICAID, SELFPAY ==
[2020-12-30 15:25] VITALS: BP 111/77; PULSE 85; RESP 18; TEMP 36.8; O2SAT 96; BMI 19.3
[2020-12-30 17:18] LABS: Basophils # 0.1 10^3/uL (0.0-0.1); Basophils % 0.5 %; Eosinophils # 0.1 10^3/uL (0.0-0.8); Eosinophils % 0.7 %; Hematocrit 48.8 % (42.0-52.0); Hemoglobin 15.8 g/dL (11.7-16.6); Lymphocytes # 1.1 10^3/uL (0.8-4.8); Lymphocytes % 9.3 %; Mean Corpuscular HGB Conc 32.4 g/dL (30.0-36.0); Mean Corpuscular Hemoglobin 28.6 pg (28.0-34.0); Mean Corpuscular Volume 88.2 fL (80-94); Mean Platelet Volume 10.4 fL (7.4-10.4); Monocytes % 8.4 %; Neutrophils # 9.68 10^3/uL (1.8-7.7); Neutrophils % 80.8 %; Nucleated Red Blood Cells % 0 %; Platelet Count 410 10^3/cmm (130-400); Red Blood Count 5.53 10^6/uL (4.1-5.3); Red Cell Distribution Width 13.1 % (12.1-15.1)
[2020-12-30 17:20] LABS: Add Urine Microscopic? NO
[2020-12-30 17:34] LABS: Bilirubin Urine Neg (Negative); Blood Urine Neg (Negative); Glucose Urine UA Norm (Normal); Ketones Urine Negative (Negative); Leukocyte Esterase Urine Negative (Negative); Nitrate Urine Negative (Negative); Protein Urine Neg (Negative); Urine Appearance Clear (CLEAR); Urine Color Yellow (Yellow); Urobilinogen Urine Norm (Negative); pH Urine 5 (5-7)
[2020-12-30 17:39] LABS: Alanine Aminotransferase 14 U/L (0-41); Albumin Level 4.2 g/dL (3.5-5.2); Alkaline Phosphatase 122 IU/L (40-130); Anion Gap 16.9 (5-19); Aspartate Amino Transferase 18 U/L (0-40); Blood Urea Nitrogen 16 mg/dL (6-20); Calcium 9.3 mg/dL (8.5-10.5); Carbon Dioxide 27 mmol/L (22-29); Chloride 99 mmol/L (98-107); Globulin 3.1 g/dL (1.3-4.6); Glomerular Filtration Rate 139.9 mL/min (90-130); Glucose 86 mg/dL (65-115); Osmolality Calculated 288 mOsm/kg (285-295); Potassium 3.9 mmol/L (3.5-5.1); Sodium 139 mmol/L (136-145); Total Bilirubin 0.5 mg/dL (0.15-1.2); Total Protein 7.3 g/dL (6.6-8.7)
[2020-12-30 17:42] LABS: Acetaminophen < 5.0 ug/mL (10-30); Salicylate < 0.3 mg/dL (3-10)
--- NOTE | 2020-12-30 18:43 | PC.NURSE ---
12/30/20 1630 patient incontinent of large soft brown stool. Patient was able to void in urinal for specimen. Pericare and linen change at this time. Patient tolerated well.
[2020-12-30 19:00] LABS: Amphetamines Screen Urine Negative (Negative); Barbiturates Screen Urine Negative (Negative); Benzodiazepines Screen Urine Negative (Negative); Cocaine Screen Urine Negative (Negative); Opiate Screen Urine Negative (Negative); PCP Screen Urine Negative (Negative); THC Screen Urine Negative (Negative)
[2020-12-30 21:07] VITALS: BP 111/73; PULSE 74; RESP 17; O2SAT 94
--- NOTE | 2020-12-30 21:09 | ED_ITS ---
HPI - Psych General: Chief Complaint: Psychiatric Symptoms Stated Complaint: PYSCH EVAL Time Seen by Provider: 12/30/20 16:38 Source: other (sludge filtration attendant) Mode of arrival: wheelchair Limitations: other (cerebral palsy) History of Present Illness: HPI Narrative: Patient is a 55-year-old male with a history of cerebral palsy who lives in a custodial. About a year ago he had some behavioral issues and was managed with medication and had improved since then. Over this weekend he had been telling staff that he was not wanting to live anymore. Today he was found in the kitchen with knives and trying to hurt himself. The physician then asked that he was brought to the emergency department to be seen because the facility does not have the capability to watch him one-on-one. He was therefore brought here to be seen History of same: Yes Relieving factors: none Exacerbating factors: none Review of Systems General: Reports: ROS unobtainable due to mental status (Cerebral palsy) [facility] ED PFSH: Medical History (Updated 12/31/20 @ 12:02 by Jero Kat MD, [facility] [place]) Alopecia areata Cerebral palsy Chronic seasonal allergic rhinitis Generalized anxiety disorder Hiatal hernia Major depressive disorder, recurrent episode, in partial remission with anxious distress Slow transit constipation Surgical History History of cholecystectomy 07/20/[address] [facility] [place] History of testicular surgery Family History Other Cancer Stroke Social History Smoking and tobacco status: never smoked Second hand smoke exposure: No Smoking risk assessment/counseling performed?: No Alcohol intake: never Desire information about alcohol rehabilitation?: No Counseling given: No Desire information about substance/drug rehabilitation?: No Counseling given: No Adopted: No Caregiver/support person: Yes Lives independently: No Household members: caregiver Housing: House Marital status: Single Number of children: 0 service: No Current occupational status: unemployed Pets and animals: Yes Pets & animals: cat(s) History of recent travel: No Sexually active: No Current gender identity: Female Physical Exam Const: COMMON NORMALS: no acute distress, average body habitus, no limitations, healthy appearing, alert and well nourished HENMT: COMMON NORMALS: normocephalic, atraumatic and moist oral mucous membranes HEAD & SCALP: normocephalic and atraumatic Neck/C-Spine: COMMON NORMALS: no JVD Resp: COMMON NORMALS: normal respiratory effort, No retractions, No use of accessory muscles, clear to auscultation bilaterally and percussion normal AUSCULTATION: clear to auscultation bilaterally PERCUSSION: percussion normal Cardio: COMMON NORMALS: no JVD, regular rate, regular rhythm, S1 normal heart sound present, S2 normal heart sound present, No gallops present (Cardio), No clicks present (Cardio), No murmurs present (Cardio), No rub (Cardio) and Peripheral pulses 2+ throughout RATE: regular rate RHYTHM: regular rhythm HEART SOUNDS: S1 normal heart sound present and S2 normal heart sound present PERIPHERAL PULSES: Peripheral pulses 2+ throughout GI: COMMON NORMALS: Normal to inspection, nondistended, normoactive bowel sounds present, Soft to palpation, non-tender, No hepatosplenomegaly present, no masses and no bruits PALPATION: Yes Soft to palpation and Yes No hepatosplenomegaly present Extremity: COMMON NORMALS: normal to inspection, full ROM, capillary refill normal, no calf tenderness and no pedal edema Neuro: SENSORIUM/ORIENTATION: Yes alert Skin: COMMON NORMALS: no rashes or lesions noted, no wounds, turgor normal, no jaundice, no petechiae and no mottling GENERAL SKIN EXAM: no rashes or lesions noted and turgor normal MDM - Psych MDM Narrative: Medical decision making narrative: 55-year-old male with a history of cerebral palsy who lives in a custodial and who presents with suicidal ideation. This has been going on for a few days but today he was found in the kitchen with knives attempting to hurt himself. He was then brought in for evaluation. Because of his cerebral palsy and the fact that he is total care the psychiatrist parent does not feel he is appropriate for this facility as the nursing staff cannot fulfill his needs. He believes he is therefore better served in a geriatric psychiatric facility that is better equipped for his needs. He is therefore being transferred to [facility] for further evaluation and management. Medical Records: Attestation: I reviewed the patient's medical records. Lab Data: Attestation: I reviewed the patient's lab results. Labs: Lab Results 12/30/20 12/30/20 12/30/20 Range/Units 16:59 16:59 17:05 WBC 12.0 H (4.0-10.0) 10^3/ uL RBC 5.53 H (4.1-5.3) 10^6/u L Hgb 15.8 (11.7-16.6) g/dL Hct 48.8 (42.0-52.0) % MCV 88.2 (80-94) fL MCH 28.6 (28.0-34.0) pg MCHC 32.4 (30.0-36.0) g/dL RDW 13.1 (12.1-15.1) % Plt Count 410 H (130-400) 10^3/c mm MPV 10.4 (7.4-10.4) fL Neut % (Auto) 80.8 % Lymph % (Auto) 9.3 % [place] % (Auto) 8.4 % Eos % (Auto) 0.7 % Baso % (Auto) 0.5 % Neut # (Auto) 9.68 H (1.8-7.7) 10^3/u L Lymph # (Auto) 1.1 (0.8-4.8) 10^3/u L [place] # (Auto) 1.0 H (0.2-0.9) 10^3/u L Eos # (Auto) 0.1 (0.0-0.8) 10^3/u L Baso # (Auto) 0.1 (0.0-0.1) 10^3/u L Nucleated RBC % (a uto) 0 % Nucleated RBCs # 0.0 /100WBC Sodium (136-145) mmol/L Potassium (3.5-5.1) mmol/L Chloride (98-107) mmol/L Carbon Dioxide (22-29) mmol/L Anion Gap (5-19) BUN (6-20) mg/dL Creatinine (0.7-1.2) mg/dL GFR Calculation (90-130) mL/min Glucose (65-115) mg/dL Calculated Osmolal ity (285-295) mOsm/k g Calcium (8.5-10.5) mg/dL Total Bilirubin (0.15-1.2) mg/dL AST (0-40) U/L ALT (0-41) U/L Alkaline Phosphata se (40-130) IU/L Total Protein (6.6-8.7) g/dL Albumin (3.5-5.2) g/dL Globulin (1.3-4.6) g/dL Urine Color Yellow (Yellow) Urine Appearance Clear (CLEAR) Urine pH 5 (5-7) Ur Specific Gravit y 1.020 (1.005-1.030) Urine Protein Neg (Negative) Urine Glucose (UA) Norm (Normal) Urine Ketones Negative (Negative) Urine Blood Neg (Negative) Urine Nitrate Negative (Negative) Urine Bilirubin Neg (Negative) Urine Urobilinogen Norm (Negative) mg/dL Ur Leukocyte Shana ase Negative (Negative) Salicylates (3-10) mg/dL Urine Opiates Scre en Negative (Negative) ng/mL Acetaminophen (10-30) ug/mL Ur Barbiturates Sc reen Negative (Negative) ng/mL Ur Phencyclidine S crn Negative (Negative) ng/mL Ur Amphetamines Sc reen Negative (Negative) ng/mL U Benzodiazepines Scrn Negative (Negative) ng/mL Urine Cocaine Scre en Negative (Negative) ng/mL U Marijuana (THC) Screen Negative (Negative) ng/mL SARS-CoV-2 Ag (Rap id) (Negative) 12/30/20 12/30/20 Range/Units 17:05 22:12 WBC (4.0-10.0) 10^3/ uL RBC (4.1-5.3) 10^6/u L Hgb (11.7-16.6) g/dL Hct (42.0-52.0) % MCV (80-94) fL MCH (28.0-34.0) pg MCHC (30.0-36.0) g/dL RDW (12.1-15.1) % Plt Count (130-400) 10^3/c mm MPV (7.4-10.4) fL Neut % (Auto) % Lymph % (Auto) % [place] % (Auto) % Eos % (Auto) % Baso % (Auto) % Neut # (Auto) (1.8-7.7) 10^3/u L Lymph # (Auto) (0.8-4.8) 10^3/u L [place] # (Auto) (0.2-0.9) 10^3/u L Eos # (Auto) (0.0-0.8) 10^3/u L Baso # (Auto) (0.0-0.1) 10^3/u L Nucleated RBC % (a uto) % Nucleated RBCs # /100WBC Sodium 139 (136-145) mmol/L Potassium 3.9 (3.5-5.1) mmol/L Chloride 99 (98-107) mmol/L Carbon Dioxide 27 (22-29) mmol/L Anion Gap 16.9 (5-19) BUN 16 (6-20) mg/dL Creatinine 0.6 L (0.7-1.2) mg/dL GFR Calculation 139.9 H (90-130) mL/min Glucose 86 (65-115) mg/dL Calculated Osmolal ity 288 (285-295) mOsm/k g Calcium 9.3 (8.5-10.5) mg/dL Total Bilirubin 0.5 (0.15-1.2) mg/dL AST 18 (0-40) U/L ALT 14 (0-41) U/L Alkaline Phosphata se 122 (40-130) IU/L Total Protein 7.3 (6.6-8.7) g/dL Albumin 4.2 (3.5-5.2) g/dL Globulin 3.1 (1.3-4.6) g/dL Urine Color (Yellow) Urine Appearance (CLEAR) Urine pH (5-7) Ur Specific Gravit y (1.005-1.030) Urine Protein (Negative) Urine Glucose (UA) (Normal) Urine Ketones (Negative) Urine Blood (Negative) Urine Nitrate (Negative) Urine Bilirubin (Negative) Urine Urobilinogen (Negative) mg/dL Ur Leukocyte Shana ase (Negative) Salicylates < 0.3 L (3-10) mg/dL Urine Opiates Scre en (Negative) ng/mL Acetaminophen < 5.0 L (10-30) ug/mL Ur Barbiturates Sc reen (Negative) ng/mL Ur Phencyclidine S crn (Negative) ng/mL Ur Amphetamines Sc reen (Negative) ng/mL U Benzodiazepines Scrn (Negative) ng/mL Urine Cocaine Scre en (Negative) ng/mL U Marijuana (THC) Screen (Negative) ng/mL SARS-CoV-2 Ag (Rap id) Negative (Negative) Discharge Plan Discharge Patient Disposition: Xfer Psychiatric Hosp Clinical Impression: Suicidal ideation Discharge Orders: Transfer Out of Facility (Order); Ordered 12/31/20 Ordered By: Jero Kat Referrals: Cindy Gotti FNP-C [Primary Care Provider] - Coding Level of Care Code ED Emu Farmer for Chg Fwd Exam Comprehensive
--- NOTE | 2020-12-30 22:27 | XRR_ITS ---
PROCEDURE INFORMATION: Exam: XR Chest Exam date and time: 12/30/2020 10:37 PM Age: 55 years old Clinical indication: Chest pain; Additional info: Psych eval TECHNIQUE: Imaging protocol: XR of the chest Views: 1 view. Total images: 1 COMPARISON: CR XR chest 2V* [id number] 04/25/2020 1:11 PM FINDINGS: Lungs: No visible active interstitial or alveolar airspace disease. Pleural spaces: Unremarkable. No pleural effusion. No pneumothorax. Heart/Mediastinum: Unremarkable. No cardiomegaly. Bones/joints: Scoliosis. Organs: Status post cholecystectomy. XR/XR chest 1V portable [id number] IMPRESSION: Nonacute.
--- NOTE | 2020-12-30 22:27 | ECG_ITS ---
[facility] Test Date: 2020-12-30 Pat Name: Arturo Schwartz Department: Room: Gender: Male Freight Separator: : 1965 Requested By: Jero Kat I Order Number: [id number] Reading MD: VANE BOOKER Measurements Intervals [place] Rate: 76 P: 38 LA: 130 QRS: -78 QRSD: 85 T: 42 QT: 361 QTc: 407 Interpretive Statements SINUS RHYTHM LEFT AXIS DEVIATION [QRS AXIS < -30] Compared to ECG 04/08/2020 18:39:39 Left-axis deviation now present Left anterior fascicular block no longer present Electronically Signed On 12-31-2020 20:17:56 CDT by VANE BOOKER [email or web address]
[2020-12-30 22:46] LABS: SARS Covid-2 Antigen Negative (Negative)
[2020-12-31 01:53] VITALS: BP 114/74; PULSE 72; RESP 17; O2SAT 96
[2020-12-31 08:01] VITALS: BP 112/69; PULSE 88; RESP 18; O2SAT 93
== END 2020-12-31 08:51 ==
PROVIDERS: Emergency Provider Family Medicine; PCP Nurse Practitioner
DX: R45.851 Suicidal ideations (principal)
CPT/HCPCS: 71045; 80053; 80306; 80307; 81003; 85025; 87426; 93005; 99285

== ENCOUNTER 2021-02-01 21:20 | Emergency (ER) | payer MEDICARE, MEDICAID, SELFPAY ==
[2021-02-01 21:21] VITALS: BP 90/57; PULSE 74; RESP 18; TEMP 38.8; O2SAT 98; BMI 18.1
--- NOTE | 2021-02-01 21:34 | XRR_ITS ---
PROCEDURE INFORMATION: Exam: XR Chest Exam date and time: 02/01/2021 9:39 PM Age: 55 years old Clinical indication: Patient HX: Fever and hypotensive (non verbal cerebral palsey); Additional info: Febrile, hypotensive TECHNIQUE: Imaging protocol: XR of the chest. Views: 1 view. COMPARISON: CR XR chest 1V portable [id number] 12/30/2020 10:34 PM FINDINGS: Limitations: The study is made with less than full inspiration. Lungs: No focal infiltrate is identified. Pleural spaces: Unremarkable. No pleural effusion. No pneumothorax. Heart/Mediastinum: Heart is within normal limits of size. Bones/joints: Unremarkable. XR/XR chest 1V portable [id number] IMPRESSION: No acute findings. No significant change from 12/30/2020.
[2021-02-01] MEDS: sodium chloride 0.9% 1,000 ML 999 ML IV (21:38)
[2021-02-01 21:54] LABS: Basophils % 0.6 %; Eosinophils # 0.1 10^3/uL (0.0-0.8); Eosinophils % 1.6 %; Hemoglobin 12.6 g/dL (11.7-16.6); Lymphocytes % 14.1 %; Mean Corpuscular HGB Conc 32.3 g/dL (30.0-36.0); Mean Corpuscular Hemoglobin 28.6 pg (28.0-34.0); Mean Corpuscular Volume 88.6 fL (80-94); Mean Platelet Volume 9.9 fL (7.4-10.4); Monocytes # 0.7 10^3/uL (0.2-0.9); Monocytes % 10.7 %; Neutrophils # 5.01 10^3/uL (1.8-7.7); Neutrophils % 72.7 %; Nucleated Red Blood Cells % 0 %; Platelet Count 276 10^3/cmm (130-400); Red Cell Distribution Width 13.6 % (12.1-15.1); White Blood Count 6.9 10^3/uL (4.0-10.0)
[2021-02-01 22:10] LABS: Lactic Sepsis W/Reflex 0.7 mmol/L (0.5-2.2)
[2021-02-01 22:11] LABS: Alanine Aminotransferase 23 U/L (0-41); Albumin Level 3.3 g/dL (3.5-5.2); Alkaline Phosphatase 127 IU/L (40-130); Anion Gap 12.2 (5-19); Aspartate Amino Transferase 29 U/L (0-40); Blood Urea Nitrogen 12 mg/dL (6-20); Calcium 7.6 mg/dL (8.5-10.5); Carbon Dioxide 25 mmol/L (22-29); Chloride 109 mmol/L (98-107); Globulin 2.4 g/dL (1.3-4.6); Glomerular Filtration Rate 223.3 mL/min (90-130); Glucose 87 mg/dL (65-115); Osmolality Calculated 295 mOsm/kg (285-295); Potassium 3.2 mmol/L (3.5-5.1); Sodium 143 mmol/L (136-145); Total Bilirubin 0.4 mg/dL (0.15-1.2); Total Protein 5.7 g/dL (6.6-8.7)
[2021-02-01] MEDS: ketorolac 30 mg/mL INJ IVP (22:52)
[2021-02-01 22:53] VITALS: BP 85/66; PULSE 74; RESP 18; O2SAT 95
[2021-02-01 23:14] LABS: Add Urine Microscopic? NO; Charge for UA Resulting for Rev
[2021-02-01 23:18] LABS: Urine Appearance Clear (CLEAR); Urine Color Yellow (Yellow); pH Urine 5 (5-7)
[2021-02-01 23:19] LABS: Bilirubin Urine 1+ (Negative); Blood Urine Neg (Negative); Glucose Urine UA Norm (Normal); Ketones Urine 2+ (Negative); Leukocyte Esterase Urine Negative (Negative); Nitrate Urine Negative (Negative); Protein Urine Neg (Negative); Urobilinogen Urine 4 mg/dL (Negative)
[2021-02-01] MEDS: sodium chloride 0.9% 500 ML 999 ML IV (23:26)
[2021-02-01] MEDS: potassium chloride oral liq 20 mEq/15 mL UDC 40 MEQ PO (23:28)
[2021-02-01 23:34] VITALS: BP 94/64; PULSE 76; RESP 19; O2SAT 93
[2021-02-01 23:35] LABS: Influenza A by IFA Negative (Negative); Influenza B by IFA Negative (Negative); SARS Covid-2 Antigen Negative (Negative)
[2021-02-02 00:40] VITALS: BP 114/72; PULSE 75; RESP 18; O2SAT 95
--- NOTE | 2021-02-02 03:16 | W.ED.FEVER ---
HPI - Fever General: Chief Complaint: Fever Stated Complaint: fever Time Seen by Provider: 02/01/21 21:33 History of Present Illness: HPI Narrative: 55-year-old male who lives in a nursing home environment. He has a history of CP and is immobile. He is minimally verbal as well. He presents with a fever. He has a history of aspiration in the past. Evidently, his temperature was quite high up to 103, and he had a had some shortness of breath with marginally low saturations. An ambulance was called to transport him from the hospital. Of note, he received his Moderna vaccination yesterday MD elicited complaint: fever Pertinent past history: other Onset (ago): hour(s) Measured temperature: 103 F Exacerbating factors: nothing Relieving factors: acetaminophen Associated symptoms: Reports cough and short of breath; Deny abdominal pain, flank pain, chest pain, confusion, diarrhea, headache(s), nasal congestion, nausea, rhinorrhea or vomiting Treatments prior to arrival fever: acetaminophen Review of Systems Const: Reports: fever(s); Denies: body aches ENMT: Denies: nasal congestion Card: Denies: chest pain Resp: Reports: dyspnea (resolved now) GI: Denies: abdominal pain, nausea, vomiting or diarrhea : Denies: flank pain Neuro: Denies: headache(s) or confusion PFS ED PFSH: Medical History (Updated 02/02/21 @ 00:11 by Jadon Jones DO) Alopecia areata Cerebral palsy Chronic seasonal allergic rhinitis Generalized anxiety disorder Hiatal hernia Major depressive disorder, recurrent episode, in partial remission with anxious distress Slow transit constipation Surgical History History of cholecystectomy 07[place]20[place]19 [place] [facility] [place] History of testicular surgery Family History Other Cancer Stroke Social History Smoking and tobacco status: never smoked Second hand smoke exposure: No Smoking risk assessment/counseling performed?: No Alcohol intake: never Desire information about alcohol rehabilitation?: No Counseling given: No Desire information about substance/drug rehabilitation?: No Counseling given: No Adopted: No Caregiver/support person: Yes Lives independently: No Household members: caregiver Housing: House Marital status: Single Number of children: 0 service: No Current occupational status: unemployed Pets and animals: Yes Pets & animals: cat(s) History of recent travel: No Sexually active: No Current gender identity: Female Physical Exam Const: COMMON NORMALS: no acute distress and alert EXAM LIMITATIONS: physical limitations and other limitations (cp) GENERAL APPEARANCE: cooperative, comfortable, well kempt and frail appearing NUTRITIONAL APPEARANCE: cachectic ORIENTATION/CONSCIOUSNESS: Yes awake, Yes oriented to person and Yes oriented to place Chest: COMMONS NORMALS: normal inspection of the chest Resp: COMMON NORMALS: normal respiratory effort, No retractions, No use of accessory muscles and clear to auscultation bilaterally AUSCULTATION: clear to auscultation bilaterally Neuro: SENSORIUM/ORIENTATION: Yes alert, Yes oriented to person and Yes oriented to place Psych: APPEARANCE: Yes well kempt Course Vital Signs: Vital signs: Vital Signs Temperature 101.9 F H 02/01/21 21:21 Pulse Rate 75 02/02/21 00:40 Respiratory Rate 18 02/02/21 00:40 Blood Pressure 114/72 02/02/21 00:40 Pulse Oximetry 95 02/02/21 00:40 MDM - Fever MDM Narrative: Medical decision making narrative: The patient was mildly hypotensive, but responded to fluids. He remained awake and alert. He is hypokalemic, which is repleted. His white blood cell count is only 6.9 without left shift. His labs are otherwise not terribly remarkable. His chest x-ray is read as negative by radiology. His urinalysis is negative. It seems the only source of his fever potentially is the vaccine he received the day before. He has oxygenated well here on room air. He will be allowed discharge home. Lab Data: Labs: Lab Results 02/01/21 02/01/21 02/01/21 Range/Units 21:52 21:52 21:52 WBC 6.9 (4.0-10.0) 10^3/ uL RBC 4.40 (4.1-5.3) 10^6/u L Hgb 12.6 (11.7-16.6) g/dL Hct 39.0 L (42.0-52.0) % MCV 88.6 (80-94) fL MCH 28.6 (28.0-34.0) pg MCHC 32.3 (30.0-36.0) g/dL RDW 13.6 (12.1-15.1) % Plt Count 276 (130-400) 10^3/c mm MPV 9.9 (7.4-10.4) fL Neut % (Auto) 72.7 % Lymph % (Auto) 14.1 % [place] % (Auto) 10.7 % Eos % (Auto) 1.6 % Baso % (Auto) 0.6 % Neut # (Auto) 5.01 (1.8-7.7) 10^3/u L Lymph # (Auto) 1.0 (0.8-4.8) 10^3/u L [place] # (Auto) 0.7 (0.2-0.9) 10^3/u L Eos # (Auto) 0.1 (0.0-0.8) 10^3/u L Baso # (Auto) 0.0 (0.0-0.1) 10^3/u L Nucleated RBC % (a uto) 0 % Nucleated RBCs # 0.0 /100WBC Sodium 143 (136-145) mmol/L Potassium 3.2 L (3.5-5.1) mmol/L Chloride 109 H (98-107) mmol/L Carbon Dioxide 25 (22-29) mmol/L Anion Gap 12.2 (5-19) BUN 12 (6-20) mg/dL Creatinine 0.4 L (0.7-1.2) mg/dL GFR Calculation 223.3 H (90-130) mL/min Glucose 87 (65-115) mg/dL Calculated Osmolal ity 295 (285-295) mOsm/k g Lactic Acid 0.7 (0.5-2.2) mmol/L Calcium 7.6 L (8.5-10.5) mg/dL Total Bilirubin 0.4 (0.15-1.2) mg/dL AST 29 (0-40) U/L ALT 23 (0-41) U/L Alkaline Phosphata se 127 (40-130) IU/L Total Protein 5.7 L (6.6-8.7) g/dL Albumin 3.3 L (3.5-5.2) g/dL Globulin 2.4 (1.3-4.6) g/dL Urine Color (Yellow) Urine Appearance (CLEAR) Urine pH (5-7) Ur Specific Gravit y (1.005-1.030) Urine Protein (Negative) Urine Glucose (UA) (Normal) Urine Ketones (Negative) Urine Blood (Negative) Urine Nitrate (Negative) Urine Bilirubin (Negative) Urine Urobilinogen (Negative) mg/dL Ur Leukocyte Shana ase (Negative) Influenza Type A A g (Negative) Influenza Type B A g (Negative) SARS-CoV-2 Ag (Rap id) (Negative) 02/01/21 02/01/21 02/01/21 Range/Units 22:58 22:58 22:58 WBC (4.0-10.0) 10^3/ uL RBC (4.1-5.3) 10^6/u L Hgb (11.7-16.6) g/dL Hct (42.0-52.0) % MCV (80-94) fL MCH (28.0-34.0) pg MCHC (30.0-36.0) g/dL RDW (12.1-15.1) % Plt Count (130-400) 10^3/c mm MPV (7.4-10.4) fL Neut % (Auto) % Lymph % (Auto) % [place] % (Auto) % Eos % (Auto) % Baso % (Auto) % Neut # (Auto) (1.8-7.7) 10^3/u L Lymph # (Auto) (0.8-4.8) 10^3/u L [place] # (Auto) (0.2-0.9) 10^3/u L Eos # (Auto) (0.0-0.8) 10^3/u L Baso # (Auto) (0.0-0.1) 10^3/u L Nucleated RBC % (a uto) % Nucleated RBCs # /100WBC Sodium (136-145) mmol/L Potassium (3.5-5.1) mmol/L Chloride (98-107) mmol/L Carbon Dioxide (22-29) mmol/L Anion Gap (5-19) BUN (6-20) mg/dL Creatinine (0.7-1.2) mg/dL GFR Calculation (90-130) mL/min Glucose (65-115) mg/dL Calculated Osmolal ity (285-295) mOsm/k g Lactic Acid (0.5-2.2) mmol/L Calcium (8.5-10.5) mg/dL Total Bilirubin (0.15-1.2) mg/dL AST (0-40) U/L ALT (0-41) U/L Alkaline Phosphata se (40-130) IU/L Total Protein (6.6-8.7) g/dL Albumin (3.5-5.2) g/dL Globulin (1.3-4.6) g/dL Urine Color Yellow (Yellow) Urine Appearance Clear (CLEAR) Urine pH 5 (5-7) Ur Specific Gravit y 1.020 (1.005-1.030) Urine Protein Neg (Negative) Urine Glucose (UA) Norm (Normal) Urine Ketones 2+ H (Negative) Urine Blood Neg (Negative) Urine Nitrate Negative (Negative) Urine Bilirubin 1+ H (Negative) Urine Urobilinogen 4 H (Negative) mg/dL Ur Leukocyte Shaan ase Negative (Negative) Influenza Type A A g Negative (Negative) Influenza Type B A g Negative (Negative) SARS-CoV-2 Ag (Rap id) Negative (Negative) Discharge Plan Discharge Patient Disposition: Home Clinical Impression: Fever of unknown origin Condition: Stable Prescriptions: No Action (DME) Wrist Brace Misc See Rx Instructions .ROUTE .MEDSUPPLY Qty: 2 RF: 0 clonazepam [Klonopin] 1 mg tablet 1 mg PO TID Qty: 90 RF: 4 olanzapine [Zyprexa] 5 mg tablet 5 mg PO .bedtime Qty: 30 RF: 6 propranolol 10 mg tablet 10 mg PO TID Qty: 90 RF: 6 Ingrezza 40 mg capsule 40 mg PO .morning Qty: 30 RF: 6 docusate sodium [Colace] 100 mg capsule 100 mg PO BID RF: 0 albuterol sulfate [Ventolin HFA] 90 mcg/actuation HFA aerosol inhaler 2 puff INHALATION Q6H PRN (Reason: Shortness Of Breath) RF: 0 polyethylene glycol 3350 [Miralax] 17 gram/dose powder 17 g PO BID Qty: 850 RF: 2 lactulose 10 gram/15 mL (15 mL) solution See Rx Instructions PO .COMPLEX PRN (Reason: Constipation) Qty: 600 RF: 0 buspirone 10 mg tablet 20 mg PO TID Qty: 180 RF: 3 promethazine-DM 6.25-15 mg/5 mL Syrup 5 ml PO Q6H PRN (Reason: Cough) RF: 0 acetaminophen 325 mg Tablet 325 mg PO QID PRN (Reason: Pain) RF: 0 loratadine 10 mg Tablet 10 mg PO DAILY RF: 0 zinc oxide See Rx Instructions .ROUTE .COMPLEX RF: 0 Discharge Orders: Discharge ED (Routine); Ordered 02/02/21 Ordered By: Jadon Jones Referrals: Cindy Gotti, FILAMENT MAKER-C [Primary Care Provider] - Patient Instructions: Fever in Adults (ED) Activity Restrictions/Additional Instructions: Return for inability to control fever, shortness of breath, worsening mental status, any other concerning symptoms. Coding Level of Care Code ED Steward/Stewardess Room for Samra Fwd Exam Expanded Problem Focused
== END 2021-02-02 00:41 | disposition home or self-care (01) ==
PROVIDERS: Physician Assistant; Emergency Provider Emergency Medicine; PCP Nurse Practitioner
DX: R50.9 Fever, unspecified (principal); G80.9 Cerebral palsy, unspecified
CPT/HCPCS: 71045; 80053; 81003; 83605; 85025; 87426; 87804; 96361; 96374; 99284; J1885; J7030; J7040

== ENCOUNTER → 2021-02-24 09:35 | Outpatient (BNVA) | payer MEDICARE, MEDICAID, SELFPAY | PROVIDERS: PCP Nurse Practitioner; Visit Provider Nurse Practitioner | DX: Z12.5 Encounter for screening for malignant neoplasm of prostate (principal); G80.0 Spastic quadriplegic cerebral palsy; F43.12 Post-traumatic stress disorder, chronic | CPT/HCPCS: 80053; 85025; 86580; G0103 ==

== ENCOUNTER → 2021-03-13 15:14 | Outpatient (BNVA) | payer MEDICARE, MEDICAID, SELFPAY | PROVIDERS: PCP Nurse Practitioner; Visit Provider Nurse Practitioner | DX: E87.5 Hyperkalemia (principal) | CPT/HCPCS: 80048 ==

== ENCOUNTER 2021-05-07 09:42 | Outpatient (CLI) | payer MEDICARE, MEDICAID, SELFPAY ==
--- NOTE | 2021-05-07 10:30 | FL_ITS ---
WS: [id number] Modified barium swallow, 05/07/2021 Clinical Data: G80.0 - Spastic quadriplegic cerebral palsy Comparison: None. Fluoroscopy time: 2.7 minutes. Findings: The patient had difficulty with oral propulsion. The head tipped backwards in order to clear the oral contents. There is also anterior spillage when the patient flexed his neck. In the pharyngeal phase there was no aspiration but minimal penetration. There is poor pharyngeal peristalsis. There is resid ual residue in the piriformis and vallecula which cleared with swallowing on multiple attempts. FL/FL barium swallow modifd [id number] Impression: 1. Poor oral propulsion of barium bolus. 2. Limited pharyngeal peristalsis with penetration but no aspiration.
== END 2021-05-07 09:43 | disposition home or self-care (01) ==
PROVIDERS: PCP Nurse Practitioner; Visit Provider Nurse Practitioner
DX: G80.0 Spastic quadriplegic cerebral palsy (principal); R13.10 Dysphagia, unspecified
CPT/HCPCS: 74230; 92611

== ENCOUNTER → 2021-06-18 10:57 | Outpatient (BNVA) | payer MEDICARE, MEDICAID, SELFPAY | PROVIDERS: PCP Nurse Practitioner; Visit Provider Nurse Practitioner Psychiatric/Mental Health | DX: F33.41 Major depressive disorder, recurrent, in partial remission (principal); F41.8 Other specified anxiety disorders; F41.1 Generalized anxiety disorder; G80.0 Spastic quadriplegic cerebral palsy; Z79.899 Other long term (current) drug therapy | CPT/HCPCS: 99214 ==

== ENCOUNTER → 2021-09-05 09:58 | Outpatient (BNVA) | payer MEDICARE, MEDICAID, SELFPAY | PROVIDERS: PCP Nurse Practitioner; Visit Provider Nurse Practitioner | DX: G80.0 Spastic quadriplegic cerebral palsy (principal); Z74.09 Other reduced mobility; K59.01 Slow transit constipation; J30.2 Other seasonal allergic rhinitis; L89.309 Pressure ulcer of unspecified buttock, unspecified stage; J98.01 Acute bronchospasm; Z79.899 Other long term (current) drug therapy | CPT/HCPCS: 80053; 80061; 83036; 85025 ==

== ENCOUNTER → 2021-10-08 10:41 | Outpatient (BNVA) | payer MEDICARE, MEDICAID, SELFPAY | PROVIDERS: PCP Nurse Practitioner; Visit Provider Nurse Practitioner Psychiatric/Mental Health | DX: F33.41 Major depressive disorder, recurrent, in partial remission (principal); F41.8 Other specified anxiety disorders; F41.1 Generalized anxiety disorder; G80.0 Spastic quadriplegic cerebral palsy | CPT/HCPCS: 99214 ==

== ENCOUNTER 2021-11-11 06:00 | Outpatient (RCR) | payer MEDICARE, MEDICAID, SELFPAY | END 2021-12-01 23:59 | disposition home or self-care (01) | LOC: AOT 06:00 | PROVIDERS: PCP Nurse Practitioner; Referring Provider Nurse Practitioner; Visit Provider Nurse Practitioner | DX: Z74.09 Other reduced mobility (principal); G80.0 Spastic quadriplegic cerebral palsy; L89.309 Pressure ulcer of unspecified buttock, unspecified stage | CPT/HCPCS: 97167; 97530 ==

== ENCOUNTER → 2022-01-28 10:51 | Outpatient (BNVA) | payer MEDICARE, MEDICAID, SELFPAY | PROVIDERS: PCP Nurse Practitioner; Visit Provider Nurse Practitioner Psychiatric/Mental Health | DX: F33.41 Major depressive disorder, recurrent, in partial remission (principal); F41.8 Other specified anxiety disorders; F41.1 Generalized anxiety disorder; G80.0 Spastic quadriplegic cerebral palsy | CPT/HCPCS: 99214 ==

== ENCOUNTER → 2022-02-04 09:29 | Outpatient (BNVA) | payer MEDICARE, MEDICAID, SELFPAY | PROVIDERS: PCP Nurse Practitioner; Visit Provider Nurse Practitioner | DX: K59.01 Slow transit constipation (principal) | CPT/HCPCS: 80053; 85025; 86580 ==

== ENCOUNTER 2022-02-10 10:51 | Observation (INO) | payer MEDICARE, MEDICAID, SELFPAY ==
[2022-02-10] VITALS (15 sets, daily range): BP systolic 91–115; BP diastolic 50–80; PULSE 54–74; RESP 16–22; TEMP 36.5–36.9; O2SAT 95–100; BMI 16.9; BMI 17.6
--- NOTE | 2022-02-10 11:00 | W.ED.GENADLT ---
HPI - General Adult General: Chief complaint: Altered Mental Status Stated complaint: POSSIBLE MEDICATION REACTION Time Seen by Provider: 02/10/22 10:55 Source: patient Mode of arrival: EMS Limitations: other (Nonverbal history of CP) History of Present Illness: 56-year-old male presents emergency room via EMS. Patient is severe cerebral palsy is nonverbal. They stopped olanzapine about 2 weeks ago and started sertraline. Since then he has been hyperactive. Has not been sleeping he was scheduled to be seen at clinic in [facility] and was referred to the emergency room. Medication change was ordered by psychiatrist at [facility]. Onset (ago): day(s) Severity: severe Review of Systems General: Reports: ROS unobtainable due to mental status PFSH ED PFSH: Medical History Adverse reaction to COVID-19 vaccine Alopecia areata Cerebral palsy Chronic seasonal allergic rhinitis Feeding by G-tube Generalized anxiety disorder Hiatal hernia Hypotension Major depressive disorder, recurrent episode, in partial remission with anxious distress Psychiatric care Rhabdomyolysis Sarcopenia Slow transit constipation Surgical History History of cholecystectomy 07/20/19 at [facility] [place] History of testicular surgery Family History Other Cancer Stroke Social History Smoking and tobacco status: never smoked Second hand smoke exposure: No Smoking risk assessment/counseling performed?: No Alcohol intake: never Desire information about alcohol rehabilitation?: No Counseling given: No Desire information about substance/drug rehabilitation?: No Counseling given: No Adopted: No Caregiver/support person: Yes Lives independently: No Household members: caregiver Housing: House Marital status: Single Number of children: 0 service: No Current occupational status: unemployed Pets and animals: Yes Pets & animals: cat(s) History of recent travel: No Sexually active: No Current gender identity: Female Physical Exam Const: COMMON NORMALS: no acute distress GENERAL APPEARANCE: cooperative ORIENTATION/CONSCIOUSNESS: Yes awake, Yes oriented to person, Yes oriented to place and Yes oriented to time HENMT: COMMON NORMALS: normocephalic and atraumatic HEAD & SCALP: normocephalic and atraumatic Eye: COMMON NORMALS: Equal, round and reactive pupils present, conjunctivae normal and no scleral icterus CONJUNCTIVA: Yes conjunctivae normal PUPIL: Yes Equal, round and reactive pupils present Resp: COMMON NORMALS: normal respiratory effort, No retractions, No use of accessory muscles and clear to auscultation bilaterally AUSCULTATION: clear to auscultation bilaterally Cardio: COMMON NORMALS: regular rate, regular rhythm and No murmurs present (Cardio) RATE: regular rate RHYTHM: regular rhythm GI: COMMON NORMALS: Soft to palpation and No hepatosplenomegaly present AUSCULTATION: Yes normoactive bowel sounds PALPATION: Yes Soft to palpation, No Tenderness to palpation present (GI), No Guarding due to palpation present (GI) and Yes No hepatosplenomegaly present Extremity: COMMON NORMALS: normal to inspection, capillary refill normal, no clubbing, cyanosis or edema, no calf tenderness and no pedal edema Neuro: SENSORIUM/ORIENTATION: Yes oriented to person, Yes oriented to place and Yes oriented to time Skin: COMMON NORMALS: no rashes or lesions noted GENERAL SKIN EXAM: no rashes or lesions noted Course Vital Signs: Vital signs: Vital Signs Temperature 98.3 F 02/12/22 16:24 Pulse Rate 82 02/12/22 16:24 Respiratory Rate 16 02/12/22 16:24 Blood Pressure 102/65 02/12/22 16:24 Pulse Oximetry 91 02/12/22 16:24 MDM - General Adult Medical Decision Making Patient is significant drop in his BMI in the last year. His BMI was 29 is down to 17 contacted the dietitian and reviewed his current intake his caloric intake is lower than would be expected to maintain his weight per calculations. Additionally concerned because he is not really getting adequate free water intake they are doing 50 mL flushes before and after each feeding 3 times a day but he is not getting any other intake. Discussed with hospitalist. Will admit for failure to thrive also discussed with psychiatry will consult them while he is in inpatient to further adjust his medications. The recent medications with stopping the antipsychotics seem to have worsened his overall condition. He probably will have to resume at least some level of the antipsychotics even if he does remain on the SSRI. Medical Records I reviewed the patient's medical records. Lab Data I reviewed the patient's lab results. : 02/11/22 01:49 02/11/22 01:49 Radiology Impressions Chest X-Ray 02/10/22 11:04 IMPRESSION: No acute chest abnormality. Head CT 02/10/22 11:39 IMPRESSION: 1. No evidence of intracranial hemorrhage or mass effect. 2. . Mild small vessel changes. Mild parenchymal volume loss. 3. Intracanal vascular calcification. 4. No acute intracranial findings. Laboratory Results WBC 8.4 10^3/uL (4.0-10.0) 02/10/22 11:15 RBC 5.39 10^6/uL (4.1-5.3) H 02/10/22 11:15 Hgb 16.2 g/dL (11.7-16.6) 02/10/22 11:15 Hct 49.1 % (42.0-52.0) 02/10/22 11:15 MCV 91.1 fl (80-94) 02/10/22 11:15 MCH 30.1 pg (28.0-34.0) 02/10/22 11:15 MCHC 33.0 g/dL (30.0-36.0) 02/10/22 11:15 RDW 12.5 % (12.1-15.1) 02/10/22 11:15 Plt Count 315 10^3/cmm (130-400) 02/10/22 11:15 MPV 12.1 fL (7.4-10.4) H 02/10/22 11:15 Neut % (Auto) 77.9 % 02/10/22 11:15 Lymph % (Auto) 13.0 % 02/10/22 11:15 [place] % (Auto) 8.3 % 02/10/22 11:15 Eos % (Auto) 0.1 % 02/10/22 11:15 Baso % (Auto) 0.5 % 02/10/22 11:15 Neut # (Auto) 6.51 10^3/uL (1.8-7.7) 02/10/22 11:15 Lymph # (Auto) 1.1 10^3/uL (0.8-4.8) 02/10/22 11:15 [place] # (Auto) 0.7 10^3/uL (0.2-0.9) 02/10/22 11:15 Eos # (Auto) 0.0 10^3/uL (0.0-0.8) 02/10/22 11:15 Baso # (Auto) 0.0 10^3/uL (0.0-0.1) 02/10/22 11:15 Nucleated RBC % (auto) 0 % 02/10/22 11:15 Nucleated RBCs # 0.0 /100WBC 02/10/22 11:15 Sodium 145 mmol/L (136-145) 02/10/22 11:15 Potassium 3.8 mmol/L (3.5-5.1) 02/10/22 11:15 Chloride 108 mmol/L (98-107) H 02/10/22 11:15 Carbon Dioxide 25 mmol/L (22-29) 02/10/22 11:15 Anion Gap 15.8 (5-19) 02/10/22 11:15 BUN 24 mg/dL (6-20) H 02/10/22 11:15 Creatinine 0.5 mg/dL (0.7-1.2) L 02/10/22 11:15 GFR Calculation 172.0 mL/min (90-130) H 02/10/22 11:15 Glucose 130 mg/dL (65-115) H 02/10/22 11:15 Calculated Osmolality 306 mOsm/kg (285-295) H 02/10/22 11:15 Calcium 9.6 mg/dL (8.5-10.5) 02/10/22 11:15 Magnesium 2.3 mg/dL (1.7-2.3) 02/10/22 11:15 Total Bilirubin 0.4 mg/dL (0.15-1.2) 02/10/22 11:15 AST 22 U/L (0-40) 02/10/22 11:15 ALT 21 U/L (0-41) 02/10/22 11:15 Alkaline Phosphatase 124 IU/L (40-130) 02/10/22 11:15 Creatine Kinase 488 U/L (39-308) H* 02/10/22 11:15 Total Protein 7.6 g/dL (6.6-8.7) 02/10/22 11:15 Albumin 4.3 g/dL (3.5-5.2) 02/10/22 11:15 Globulin 3.3 g/dL (1.3-4.6) 02/10/22 11:15 Lipase 24 U/L (13-60) 02/10/22 11:15 Urine Color Yellow (Yellow) 02/10/22 12:15 Urine Appearance Clear (CLEAR) 02/10/22 12:15 Urine pH 6.5 (5-7) 02/10/22 12:15 Ur Specific [place] 1.020 (1.005-1.030) 02/10/22 12:15 Urine Protein Neg (Negative) 02/10/22 12:15 Urine Glucose (UA) 2+ (Normal) H 02/10/22 12:15 Urine Ketones 1+ (Negative) H 02/10/22 12:15 Urine Blood Neg (Negative) 02/10/22 12:15 Urine Nitrate Negative (Negative) 02/10/22 12:15 Urine Bilirubin Neg (Negative) 02/10/22 12:15 Urine Urobilinogen 1 mg/dL (Negative) H 02/10/22 12:15 Ur Leukocyte Esterase Negative (Negative) 02/10/22 12:15 Discharge Plan Discharge Patient Disposition: Placed in Observation Admit Provider: Armaan Kong Clinical Impression: Adult failure to thrive, Rhabdomyolysis, Behavioral change, Feeding by G-tube, Cerebral palsy Coding Level of Care Code ED Medical Affairs Manager for Samra Zuluaga
--- NOTE | 2022-02-10 11:04 | XR_ITS ---
WS: [id number] XR chest 1V portable [id number] REASON FOR EXAM: dyspnea/cough FINDINGS: Chest is rotated and inspiratory effort is suboptimal. Mild tortuosity the thoracic aorta and normal heart size. Calcified granulomatous disease in both hemithoraces. Reticular interstitial opacities centrally and in the lower lung perea which appear to be chronic in nature and unchanged compared to 02/01/2021. No definite acute pulmonary parenchymal or pleural abnorm ality. Bony thorax intact. XR/XR chest 1V portable [id number] IMPRESSION: No acute chest abnormality.
[2022-02-10] MEDS: LORazepam 2 mg/mL INJ 1 mL IVP (11:34)
[2022-02-10 11:36] LABS: Basophils % 0.5 %; Eosinophils % 0.1 %; Hematocrit 49.1 % (42.0-52.0); Hemoglobin 16.2 g/dL (11.7-16.6); Lymphocytes # 1.1 10^3/uL (0.8-4.8); Mean Corpuscular Hemoglobin 30.1 pg (28.0-34.0); Mean Corpuscular Volume 91.1 fl (80-94); Mean Platelet Volume 12.1 fL (7.4-10.4); Monocytes # 0.7 10^3/uL (0.2-0.9); Monocytes % 8.3 %; Neutrophils # 6.51 10^3/uL (1.8-7.7); Neutrophils % 77.9 %; Nucleated Red Blood Cells % 0 %; Platelet Count 315 10^3/cmm (130-400); Red Blood Count 5.39 10^6/uL (4.1-5.3); Red Cell Distribution Width 12.5 % (12.1-15.1); White Blood Count 8.4 10^3/uL (4.0-10.0)
--- NOTE | 2022-02-10 11:39 | CT_ITS ---
WS: [id number] CT HEAD TECHNIQUE: Noncontrast CT of the head obtained from the skullbase to the vertex. CLINICAL INFORMATION: AMS COMPARISON: None. DLP: 946.[address] scans at [facility] use at least one of these dose optimization techniques: automated e xposure control; mA and/or kV adjustment per patient size (includes targeted exams where dose is matc hed to clinical indication); or iterative reconstruction. FINDINGS: No evidence of intracranial hemorrhage or mass effect. Ventricular system and basal cisterns are mclean nt. Mild small vessel changes with mild parenchymal volume loss. Incidental prominent subarachnoid sp pedro overlying the LEFT hemisphere. No mass effect or midline shift. Normal live-white differentiation . Paranasal sinuses and mastoid air cells are well aerated. .Normal visualized soft tissues. CT/CT head wo con* [id number] IMPRESSION: 1. No evidence of intracranial hemorrhage or mass effect. 2. . Mild small vessel changes. Mild parenchymal volume loss. 3. Intracanal vascular calcification. 4. No acute intracranial findings.
[2022-02-10 12:12] LABS: Alanine Aminotransferase 21 U/L (0-41); Albumin Level 4.3 g/dL (3.5-5.2); Alkaline Phosphatase 124 IU/L (40-130); Anion Gap 15.8 (5-19); Aspartate Amino Transferase 22 U/L (0-40); Blood Urea Nitrogen 24 mg/dL (6-20); Calcium 9.6 mg/dL (8.5-10.5); Carbon Dioxide 25 mmol/L (22-29); Chloride 108 mmol/L (98-107); Globulin 3.3 g/dL (1.3-4.6); Glucose 130 mg/dL (65-115); Lipase 24 U/L (13-60); Magnesium 2.3 mg/dL (1.7-2.3); Osmolality Calculated 306 mOsm/kg (285-295); Potassium 3.8 mmol/L (3.5-5.1); Sodium 145 mmol/L (136-145); Total Bilirubin 0.4 mg/dL (0.15-1.2); Total Protein 7.6 g/dL (6.6-8.7)
[2022-02-10 12:18] LABS: Creatine Phosphokinase 488 U/L (39-308)
[2022-02-10 12:34] LABS: Add Urine Microscopic? NO; Charge for UA Resulting for Rev
[2022-02-10 12:36] LABS: Protein Urine Neg (Negative); Urine Appearance Clear (CLEAR); Urine Color Yellow (Yellow); pH Urine 6.5 (5-7)
[2022-02-10 12:37] LABS: Bilirubin Urine Neg (Negative); Blood Urine Neg (Negative); Glucose Urine UA 2+ (Normal); Ketones Urine 1+ (Negative); Leukocyte Esterase Urine Negative (Negative); Nitrate Urine Negative (Negative); Urobilinogen Urine 1 mg/dL (Negative)
--- NOTE | 2022-02-10 13:44 | PC.PHAR ---
PT NON-VERBAL- MEDICATIONS VERIFIED BY VIJAYA AND MED LIST FROM PT'S FACILITY [facility] [phone]
[2022-02-10] MEDS: sodium chloride 0.9% 1,000 ML 999 ML IV ×2 (14:16→14:52)
--- NOTE | 2022-02-10 20:36 | ECG_ITS ---
[facility] Test Date: 2022-02-10 Pat Name: Arturo Schwartz Department: Room: 255 Gender: Male Costume Specialist: : 1965 Requested By: Armaan Kong Order Number: [id number] Prabha MD: Forrest Kilpatrick M.D. Measurements Intervals [place] Rate: 53 P: 35 HI: 133 QRS: -50 QRSD: 95 T: 18 QT: 439 QTc: 415 Interpretive Statements SINUS BRADYCARDIA LEFT AXIS DEVIATION [QRS AXIS < -30] PATTERN CONSISTENT WITH PULMONARY DISEASE Compared to ECG 12/30/2020 23:35:44 Sinus rhythm no longer present Electronically Signed On 02-10-2022 22:57:26 CDT by Forrest Kilpatrick M.D. [email or web address]
--- NOTE | 2022-02-10 20:38 | P.HP_ITS ---
Providers/Chief Complaint Admitting Physician: Armaan Kong Primary Care Provider: HARVINDER Finch Chief Complaint: POSSIBLE MEDICATION REACTION History of Present Illness 56-year-old woman with CP, living at [facility] facility was brought in due to recently noted to be hyperactive, unable to sleep since Wednesday, after medication changes with discontinuation of Zyprexa and was instead started on sertraline. In ER with noted mild rhabdomyolysis, CK 488, given IV fluid boluses for hydration, with initially also low blood pressure, 94/50. Also noted low BMI. Per discussion with his caregiver he has gained some weight recently. He receives tube feeds with Jevity 1.2, with some available reports, 1-1.5 cartons 3 times a day, followed by water flush of 60 mL. He is reported to be eating by mouth as well, and may also drink a soda can. He is at risk of aspiration, and caregiver did not recommend continuing oral intake while in the hospital due to recurrent aspiration when hospitalized. He normally has his vitals checked once a month and as needed, though caregiver states they have not seen hypotension. He is afebrile, without leukocytosis. Chest x-ray and UA without suggestion of infection. BUN 24, creatinine 0.5. He is unable to provide history or ROS. Very difficult to understand vocalizations. Review of Systems General: Reports: ROS unobtainable due to medical condition Medications/Allergies Home Medications Medication Instructions Recorded Confirmed Last Taken Type arm brace (Wrist Brace) #2 each 03/04/20 02/10/22 Unknown Rx Mobility Power Chair #1 ea 02/25/21 02/10/22 Unknown Rx syringe (disposable) 60 mL (Easy #100 ea 03/28/21 02/10/22 Unknown Rx [place] Catheter Tip Syringe) Complex Power Tilt & Recline #1 ea 09/05/21 02/10/22 Unknown Rx Wheelchairs albuterol sulfate 90 mcg/actuation 2 puff INHALATION Q6H PRN #8.5 g 09/05/21 02/10/22 Unknown Rx aerosol inhaler (Ventolin HFA) lactose-reduced food with fiber See Rx Instructions PO .COMPLEX 09/05/21 02/10/22 02/10/22 Rx 0.06 gram-1.5 kcal/mL oral liquid #1000 ml (Jevity 1.5 Moses) zinc oxide 20 % topical ointment 1 applic TOPICAL TID PRN #60 g 09/05/21 02/10/22 Unknown Rx benztropine 1 mg tablet 1 mg PO BID #180 tab 12/16/21 02/10/22 02/10/22 Rx diazepam 2 mg tablet (Valium) 1 mg PO DIRECTED #30 tab 12/16/21 02/10/22 02/10/22 Rx melatonin 5 mg tablet 5 mg PO .bedtime #90 tab 12/16/21 02/10/22 02/09/22 Rx sertraline 50 mg tablet (Zoloft) 50 mg PO .morning #30 tab 01/28/22 02/10/22 02/10/22 Rx acetaminophen 325 mg tablet 325 mg PO QID PRN #30 tab 02/04/22 02/10/22 Unknown Rx cetirizine 10 mg tablet 10 mg PO DAILY #30 tab 02/04/22 02/10/22 02/10/22 Rx docusate sodium 50 mg/5 mL oral 100 mg (10 mL) PO BID #1800 ml 02/04/22 02/10/22 02/10/22 Rx liquid (Docu) lactulose 10 gram/15 mL (15 mL) See Rx Instructions PO .COMPLEX 02/04/22 02/10/22 Unknown Rx oral solution PRN #600 ml polyethylene glycol 3350 17 17 g PO BID #850 g 02/04/22 02/10/22 02/10/22 Rx gram/dose oral powder (Miralax) olanzapine 5 mg tablet (Zyprexa) 5 mg PO QPM #30 tab 02/10/22 Unknown Rx Allergies Allergy/AdvReac Type Severity Reaction Status Date / Time duloxetine [From Cymbalta] Allergy Unresponsiv Verified 02/10/22 13:51 e PFSH Acute PFSH: Medical History (Updated 02/10/22 @ 20:43 by Armaan Kong MD) Adverse reaction to COVID-19 vaccine Alopecia areata Cerebral palsy Chronic seasonal allergic rhinitis Feeding by G-tube Generalized anxiety disorder Hiatal hernia Major depressive disorder, recurrent episode, in partial remission with anxious distress Psychiatric care Slow transit constipation Surgical History History of cholecystectomy 07/20/19 at [facility] [place] History of testicular surgery Family History Other Cancer Stroke Social History Smoking and tobacco status: never smoked Second hand smoke exposure: No Smoking risk assessment/counseling performed?: No Alcohol intake: never Desire information about alcohol rehabilitation?: No Counseling given: No Desire information about substance/drug rehabilitation?: No Counseling given: No Adopted: No Caregiver/support person: Yes Lives independently: No Household members: caregiver Housing: House Marital status: Single Number of children: 0 service: No Current occupational status: unemployed Pets and animals: Yes Pets & animals: cat(s) History of recent travel: No Sexually active: No Current gender identity: Female Vitals/I&O/Wt Last Vital Signs Temp 97.7 F 02/10/22 20:06 Pulse 57 L 02/10/22 20:06 Resp 20 H 02/10/22 20:06 BP 99/57 02/10/22 20:06 Pulse Ox 95 02/10/22 20:06 02/10/22 02/10/22 02/10/22 06:59 14:59 22:59 Output Total 300 / 300 Balance -300 / -300 Weight last 48 hrs Weight 46.522 kg Weight 44.906 kg Physical Exam Const: COMMON NORMALS: alert GENERAL APPEARANCE: cooperative (With respiratory exam) ORIENTATION/CONSCIOUSNESS: Yes awake HENMT: COMMON NORMALS: normocephalic, EAC's normal and Normal external nose present HEAD & SCALP: normocephalic NOSE: Normal external nose present EXTERNAL AUDITORY CANAL: EAC's normal Neck/C-Spine: COMMON NORMALS: no meningeal signs Chest: CHEST: Yes Symmetrical chest wall rise Resp: COMMON NORMALS: clear to auscultation bilaterally AUSCULTATION: clear to auscultation bilaterally Cardio: COMMON NORMALS: regular rate, regular rhythm and No murmurs present (Cardio) RATE: regular rate RHYTHM: regular rhythm GI: COMMON NORMALS: Normal to inspection, nondistended, normoactive bowel sounds present, Soft to palpation and non-tender PALPATION: Yes Soft to palpation OTHER: PEG button Extremity: COMMON NORMALS: no pedal edema OTHER: Very thin, sarcopenia Contractures BL LE and hands and wrists Neuro: COMMON NORMALS: moves all extremities SENSORIUM/ORIENTATION: Yes alert MENINGEAL SIGNS: Yes no meningeal signs Psych: COMMON NORMALS: mental status grossly normal Skin: COMMON NORMALS: no wounds RASHES: no rashes Data : 02/10/22 11:15 02/10/22 11:15 A&P Assessment and plan (1) Adult failure to thrive: Evaluation assessment. Tube feeds. G-tube risk for aspiration recommendations not to continue oral feeds while in the hospital, but otherwise he does take some intake by mouth. Low BMI, sarcopenia. Has been having difficulties with gaining weight, although does appear to have gained some weight since June 2021. Overall last time his weight was higher was in April 2020. At that time weight 53.9 kg. TSH Status: Acute (2) Behavioral change: Recently with hyperactivity has not slept since Wednesday. Did get some sleep after receiving lorazepam in ER. Recently olanzapine was discontinued. He has been on it for a long time. Will resume his usual dose. He was also started on sertraline will hold for now. Pending psychiatric assessment. CT of the head without intracranial hemorrhage or mass-effect. Mild small vessel changes. Mild parenchymal volume loss. Intracanal vascular calcific ation. No acute findings. Check TSH Status: Acute (3) Hypotension: Received IV fluid boluses. No suggestion of sepsis. Continue IV hydration. Status: Acute (4) Rhabdomyolysis: Recheck CK level. He is not able to provide ROS. Check troponin EKG series. Status: Acute (5) Sarcopenia: As above Status: Acute Plan CP Multiple contractures: Long-term will benefit from range of motion MILI MDD Hiatal hernia Constipation Attestations Medical Necessity Statement*: Place in observation for additional assessment and management of behavioral change, blood pressure, rhabdomyolysis, failure to thrive. Coding Level of Care Code Acute Gearcase Assembler for [facility] Fwd Exam Comprehensive Diagnoses Adult failure to thrive R62.7 Rhabdomyolysis M62.82 Sarcopenia M62.84 Hypotension I95.9 Behavioral change R46.89
[2022-02-10] MEDS: D5-NS 0.45% + KCL 20 mEq 20 MEQ/1,000 ML BAG 150 MEQ IV (21:20)
[2022-02-10] MEDS: OLANZapine 5 mg TABLET PO (21:23)
[2022-02-10] MEDS: benztropine 1 mg Tablet PEG-TUBE (21:23)
[2022-02-10] MEDS: heparin 5,000 unit/mL INJ 1 mL 5000 UNIT SUBCUT (21:24)
[2022-02-10 21:52] LABS: Troponin(5th) Baseline 14 ng/L (0-15)
[2022-02-10] MEDS: sodium chloride 0.9% 1,000 ML 100 ML IV (22:21)
--- NOTE | 2022-02-10 22:36 | ECG_ITS ---
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 Measurements Intervals [place] Rate: 52 P: 42 GA: 125 QRS: -46 QRSD: 97 T: 28 QT: 426 QTc: 398 Interpretive Statements SINUS BRADYCARDIA LEFT AXIS DEVIATION [QRS AXIS < -30] LOW QRS VOLTAGE IN EXTREMITY LEADS [QRS DEFLECTION < 0.5 mV IN LIMB LEADS] PATTERN CONSISTENT WITH PULMONARY DISEASE Compared to ECG 02/10/2022 20:16:44 Low QRS voltage now present Electronically Signed On 02-11-2022 22:59:44 CDT by Phoebe Hoyt M.D. [id number]
[2022-02-11 01:39] LABS: Thyroid Stimulating Hormone 1.02 uIU/mL (0.27-4.20)
--- NOTE | 2022-02-11 02:36 | ECG_ITS ---
[facility] Test Date: 2022-02-11 Pat Name: Arturo Schwartz Department: Room: 255 Gender: Male Director Health: : 1965 Requested By: Armaan Kong Order Number: [id number] Prabha MD: Phoebe Hoyt M.D. Measurements Intervals [place] Rate: 48 P: 33 WI: 131 QRS: -54 QRSD: 92 T: 32 QT: 409 QTc: 367 Interpretive Statements SINUS BRADYCARDIA WITH SINUS ARRHYTHMIA PATTERN CONSISTENT WITH PULMONARY DISEASE LEFT ANTERIOR FASCICULAR BLOCK [QRS AXIS <= -45, QR IN I, RS IN II] Compared to ECG 02/10/2022 23:41:10 Left anterior fascicular block now present Left-axis deviation no longer present Electronically Signed On 02-11-2022 22:59:15 CDT by Phoebe Hoyt M.D. [id number]
[2022-02-11 02:42] LABS: Basophils % 0.3 %; Eosinophils # 0.1 10^3/uL (0.0-0.8); Eosinophils % 0.8 %; Hematocrit 41.2 % (42.0-52.0); Hemoglobin 13.1 g/dL (11.7-16.6); Lymphocytes # 2.2 10^3/uL (0.8-4.8); Lymphocytes % 35.8 %; Mean Corpuscular HGB Conc 31.8 g/dL (30.0-36.0); Mean Corpuscular Hemoglobin 30.5 pg (28.0-34.0); Mean Platelet Volume 11.8 fL (7.4-10.4); Monocytes # 0.5 10^3/uL (0.2-0.9); Monocytes % 7.8 %; Neutrophils # 3.44 10^3/uL (1.8-7.7); Nucleated Red Blood Cells % 0 %; Platelet Count 248 10^3/cmm (130-400); Red Blood Count 4.29 10^6/uL (4.1-5.3); Red Cell Distribution Width 12.9 % (12.1-15.1); White Blood Count 6.3 10^3/uL (4.0-10.0)
[2022-02-11 03:04] LABS: Troponin 5 6HR 13.56 ng/L (0-15)
[2022-02-11 03:10] LABS: Anion Gap 12.3 (5-19); Blood Urea Nitrogen 19 mg/dL (6-20); Calcium 8.9 mg/dL (8.5-10.5); Carbon Dioxide 25 mmol/L (22-29); Chloride 112 mmol/L (98-107); Creatine Phosphokinase 309 U/L (39-308); Glomerular Filtration Rate 139.4 mL/min (90-130); Glucose 81 mg/dL (65-115); Osmolality Calculated 301 mOsm/kg (285-295); Potassium 4.3 mmol/L (3.5-5.1); Sodium 145 mmol/L (136-145)
[2022-02-11 04:00] VITALS: BP 90/49; PULSE 54; RESP 16; TEMP 36.7; O2SAT 96
[2022-02-11 04:15] LABS: Troponin 5 6HR Delta -0.44 ng/L (0-12)
--- NOTE | 2022-02-11 07:03 | P.NPUCON_ITS ---
Providers/Reason for Consult Consulting Physican/Specialty*: Yusuf Ferguson MD/Psychiatist Reason for Consult*: Insomnia and agitation recently. Attending Physician: Armaan Kong Primary Care Provider: HARVINDER Finch Psych Consult HPI History of Present Illness Arturo Schwartz is a 56 year old male admitted to the medical surgical unit with the following report: 56-year-old woman with CP, living at [facility] facility was brought in due to recently noted to be hyperactive, unable to sleep since Wednesday, after medication changes with discontinuation of Zyprexa and was instead started on sertraline.? In ER with noted mild rhabdomyolysis, CK 488, given IV fluid boluses for hydration, with initially also low blood pressure, 94/50. Also noted low BMI.? Per discussion with his caregiver he has gained some weight recently.? He receives tube feeds with Jevity 1.2, with some available reports, 1-1.5 cartons 3 times a day, followed by water flush of 60 mL.? He is reported to be eating by mouth as well, and may also drink a soda can.? He is at risk of aspiration, and caregiver did not recommend continuing oral intake while in the hospital due to recurrent aspiration when hospitalized. He normally has his vitals checked once a month and as needed, though caregiver states they have not seen hypotension. He is afebrile, without leukocytosis.? Chest x-ray and UA without suggestion of infection.? BUN 24, creatinine 0.5. He is unable to provide history or ROS.? Very difficult to understand vocalizations. 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 Qualified Code(s):?G80.0 - Spastic quadriplegic cerebral palsy Psychiatry SOAP Note Time In: 11:40 Time Out: 12:05 Subjective Subjective: CHIEF COMPLAINT:? Per Elham, house painter helper,on the phone today Pretty good except for his sleep ; per Yola, caregiver, in office today Crying a lot RECENT/INTERVAL HISTORY: 56? yr old male, and his caregiver Yola, present in office today, with his house painter helper, Elham,? from [facility] on the phone today;? Elham and Yola are the primary historians for todays office visit, with Arturo giving contributory information. -Sleep pattern reported by Elham as he sleeps but not like he use to, I think after he takes the medicine he fights the medicine instead of going to sleep. Yola reports I think there are nights that he sleeps but I don't think he feels rested in the morning. -Describes mood today as sad , Yola reports Arturo has been crying a lot, saying he doesn't want to live, he is not enjoying anything anymore, not wanting to go to work sometimes. -Arturo admits feeling nervous today, Elham states he had an outburst three weeks ago, I gave him a placebo and he was fine, the outburst stopped, I think its very easy for Arturo to change his mood, if he is getting attention about his medications, he is fine. -Nutritional intake reported as adequate and per Elham he is eating again by mouth, snacks, like pudding but we are still using the G-tube ; medications administered thru G-Tube. -Arturo denies suicidal ideation/plan, denies homicidal ideation/plan, denies auditory/visual hallucinations; no delusions or paranoia. 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 Qualified Code(s):?G80.0 - Spastic quadriplegic cerebral palsy Psychiatry SOAP Note Time In: 11:40 Time Out: 12:05 Subjective Subjective: CHIEF COMPLAINT:? Per Elham, house painter helper,on the phone today Pretty good except for his sleep ; per Yola, caregiver, in office today Crying a lot RECENT/INTERVAL HISTORY: 56? yr old male, and his caregiver Yola, present in office today, with his house painter helper, Elham? from [facility] on the phone today;? Elham and Yola are the primary historians for todays office visit, with Arturo giving contributory information. -Sleep pattern reported by Elham as he sleeps but not like he use to, I think after he takes the medicine he fights the medicine instead of going to sleep. Yola reports I think there are nights that he sleeps but I don't think he feels rested in the morning. -Describes mood today as sad , Yola reports Arturo has been crying a lot, saying he doesn't want to live, he is not enjoying anything anymore, not wanting to go to work sometimes. -Arturo admits feeling nervous today, Elham states he had an outburst three weeks ago, I gave him a placebo and he was fine, the outburst stopped, I think its very easy for Arturo to change his mood, if he is getting attention about his medications, he is fine. -Nutritional intake reported as adequate and per Elham he is eating again by mouth, snacks, like pudding but we are still using the G-tube ; medications administered thru G-Tube. -Arturo denies suicidal ideation/plan, denies homicidal ideation/plan, denies auditory/visual hallucinations; no delusions or paranoia. Objective Objective: MENTAL STATUS EXAMINATION: Vital Signs: Reviewed and in chart Appearance: Dressed appropriately for season; adequate hygiene, wearing mask (COVID-19 precautions) Behavior: Cooperative with fair eye contact Gait: Patient uses electric wheelchair, does not ambulate Speech: Dysarthric, difficult to understand Thought Process: Delayed, dysphoric Thought Content: Denied suicidal ideation/plan, homicidal ideation/plan, no auditory/visual hallucinations, no delusions or paranoia Mood & Affect: Anxious, crying intermittently today; congruent to exhibited mood Insight & Judgment: Fair Alert & Oriented: x 4 Fund of Knowledge: Below average Language: Intact Recent & Remote Memory:? Unable to assess Assesment & Plan Assessment: -Elham house painter helper is on the phone today and Arturo's caregiver Linda is in the office with Arturo today, both Elham and Yola are the primary historian's for todays visit.? -Arturo's sleep pattern reported as varied, sometimes with Arturo sleeping and most recently for the past 4 weeks, patient has experienced inadequate sleep pattern; mood exhibited today is depressed and anxious, with both Elham and Yola endorsing Arturo is isolating to himself more, not wanting to attend work or engage in activities that he usually enjoys; will discontinue Zyprexa 5 mg at bedtime and start Zoloft 50 mg in morning.? -We discussed today Arturo's statement of not wanting to be alive and crying, however, he denies wanting to act out on the thought, with Elham reporting Arturo does not have access to any means for suicide, has a caregiver with him at all times also. -Will continue remaining medications without further changes. -The potential benefits and risks of the plan outlined below was discussed with the patient and his caregiver Elham, both were given opportunity to discuss and ask questions, and both are in agreement with the plan. DIAGNOSTICS: 04/20/19:? HA1C 5.9, Lipid panel completed 04/10/20:? HA1C 5.5, Lipid panel completed 06/18/21:? CMP, HA1C and Lipid panel ordered 09/05/21:? HA1C 5.3, Lipid panel completed Plan: -Discontinue Zyprexa 5 mg at bedtime -Start Zoloft 50 mg in morning -Continue Cogentin 1 mg twice per day -Continue Valium 2 mg:? half tablet in morning and at 3 pm -Continue Melatonin 5 mg at bedtime -The risks, benefits, and side effects of the medication and treatment plan were explained to patient who expressed understanding.? Both caregivers of patient are aware of the [facility] crisis hotline and the local emergency department and can access as necessary. -Follow up with patient in 4-6 weeks, however, Arturo's caregiver Elham understands she may call or return to clinic sooner as needed. Meds Home Medications and Allergies Home Medications Medication Instructions Recorded Confirmed Last Taken Type arm brace (Wrist Brace) #2 each 03/04/20 02/10/22 Unknown Rx Mobility Power Chair #1 ea 02/25/21 02/10/22 Unknown Rx syringe (disposable) 60 mL (Easy #100 ea 03/28/21 02/10/22 Unknown Rx [place] Catheter Tip Syringe) Complex Power Tilt & Recline #1 ea 09/05/21 02/10/22 Unknown Rx Wheelchairs albuterol sulfate 90 mcg/actuation 2 puff INHALATION Q6H PRN #8.5 g 09/05/21 02/10/22 Unknown Rx aerosol inhaler (Ventolin HFA) lactose-reduced food with fiber See Rx Instructions PO .COMPLEX 09/05/21 02/10/22 02/10/22 Rx 0.06 gram-1.5 kcal/mL oral liquid #1000 ml (Jevity 1.5 Moses) zinc oxide 20 % topical ointment 1 applic TOPICAL TID PRN #60 g 09/05/21 02/10/22 Unknown Rx benztropine 1 mg tablet 1 mg PO BID #180 tab 12/16/21 02/10/22 02/10/22 Rx diazepam 2 mg tablet (Valium) 1 mg PO DIRECTED #30 tab 12/16/21 02/10/22 02/10/22 Rx melatonin 5 mg tablet 5 mg PO .bedtime #90 tab 12/16/21 02/10/22 02/09/22 Rx sertraline 50 mg tablet (Zoloft) 50 mg PO .morning #30 tab 01/28/22 02/10/22 02/10/22 Rx acetaminophen 325 mg tablet 325 mg PO QID PRN #30 tab 02/04/22 02/10/22 Unknown Rx cetirizine 10 mg tablet 10 mg PO DAILY #30 tab 02/04/22 02/10/22 02/10/22 Rx docusate sodium 50 mg/5 mL oral 100 mg (10 mL) PO BID #1800 ml 02/04/22 02/10/22 02/10/22 Rx liquid (Docu) lactulose 10 gram/15 mL (15 mL) See Rx Instructions PO .COMPLEX 02/04/22 2 Unknown Rx oral solution PRN #600 ml polyethylene glycol 3350 17 17 g PO BID #850 g 02/04/22 02/10/22 02/10/22 Rx gram/dose oral powder (Miralax) olanzapine 5 mg tablet (Zyprexa) 5 mg PO QPM #30 tab 02/10/22 Unknown Rx Allergies Allergy/AdvReac Type Severity Reaction Status Date / Time duloxetine [From Cymbalta] Allergy Unresponsiv Verified 02/10/22 13:51 e Current Medications Current Medications Generic Name Dose Route Start Last Admin Trade Name Charles PRN Reason Stop Dose Admin Benztropine Mesylate 1 mg 02/10/22 20:45 02/10/22 21:23 Benztropine 1 Mg Tablet PEG-TUBE 1 mg BID MOJGAN Administration Heparin Sodium (Porcine) 5,000 unit 02/10/22 21:00 02/10/22 21:24 Heparin 5,000 Unit/Ml Inj 1 Ml SUBCUT 5,000 unit Q12H MOJGAN Administration Sodium Chloride 1,000 mls @ 100 mls/hr 02/10/22 19:55 02/10/22 22:21 Sodium Chloride 0.9% IV 100 mls/hr .Q10H MOJGAN Administration Olanzapine 5 mg 02/10/22 21:00 02/10/22 21:23 Olanzapine 5 Mg Tablet PO 5 mg BEDTIME MOJGAN Administration PFSH NPU PFSH: Medical History (Updated 02/10/22 @ 20:43 by Armaan Kong MD) Adverse reaction to COVID-19 vaccine Alopecia areata Cerebral palsy Chronic seasonal allergic rhinitis Feeding by G-tube Generalized anxiety disorder Hiatal hernia Major depressive disorder, recurrent episode, in partial remission with anxious distress Psychiatric care Slow transit constipation Surgical History [place] [facility] [place] of testicular surgery Family History Other Cancer Stroke Social History Smoking and tobacco status: never smoked Second hand smoke exposure: No Smoking risk assessment/counseling performed?: No Alcohol intake: never Desire information about alcohol rehabilitation?: No Counseling given: No Desire information about substance/drug rehabilitation?: No Counseling given: No Adopted: No Caregiver/support person: Yes Lives independently: No Household members: caregiver Housing: House Marital status: Single Number of children: 0 service: No Current occupational status: unemployed Pets and animals: Yes Pets & animals: cat(s) History of recent travel: No Sexually active: No Current gender identity: Female Vitals/I&O/Wt Last Vital Signs Temp 98.0 F 02/11/22 04:00 Pulse 54 L 02/11/22 04:00 Resp 16 02/11/22 04:00 BP 90/49 02/11/22 04:00 Pulse Ox 96 02/11/22 04:00 02/10/22 02/11/22 02/11/22 22:59 06:59 14:59 Output Total 300 / 300 Balance -300 / -300 Weight last 48 hrs Weight 46.522 kg Weight 44.906 kg Data NPU : 02/11/22 01:49 02/11/22 01:49 A&P Assessment and plan (1) Behavioral change: Status: Acute (2) Cerebral palsy: Status: Chronic (3) Generalized anxiety disorder: Status: Chronic (4) Major depressive disorder, recurrent episode, in partial remission with anxious distress: Status: Chronic Plan 56-year-old male with cerebral palsy who has had behavioral change and insomnia since Zyprexa 5 mg at bedtime was discontinued and Zoloft 50 mg added. I suspect the changes from the Zyprexa and not the Zoloft. Agree with the recommendation to reinstitute Zyprexa and hold Zoloft for now. Zoloft can be added back later since he has expressed depression with some suicidal ideation recently. Attestations NPU Medical Necessity Statement*: See attending physician's notes for medical necessity. Coding Level of Care Code Acute Log Buncher for [facility] Diagnoses Behavioral change R46.89 Cerebral palsy G80.9 Generalized anxiety disorder F41.1 Major depressive disorder, recurrent episode, in partial remission with anxious distress F33.41; F41.8
[2022-02-11 07:52] VITALS: BP 98/55; PULSE 61; RESP 16; TEMP 36.4; O2SAT 96
--- NOTE | 2022-02-11 08:27 | PC.NUTR ---
Consult for PEG tube feedings received. Recommend CONSTRUCTION PROJECT COORDINATOR eval so that if Patient truly wants PO intake, his ability and aspiration risk are known. While in the hospital, Jevity 1.2 is recommended, 6 cartons or servings (8 oz or 237 mls/serving), 2 at breakfast, 2 at lunch, and 2 at dinner with 60 mls flushes before and after. If possible, recommend an additional 300 mls fluid in between feedings, monitoring how full Pt feels or if he is able to have PO intake. At [facility] where Jevity 1.5 cartons are used, recommend 5 cartons/day in a 1-2-2 fashion to coordinate with his work schedule as well as 60 mls flushes before and after each Peg tube feeding. An additional 300-500 mls extra fluids in between feedings would be recommended as long as Pt didn't feel too full and they were appropriately thickened to avoid aspiration risk. Details in RD assessment
[2022-02-11 08:33] VITALS: PULSE 64; RESP 17; O2SAT 94
[2022-02-11] MEDS: sodium chloride 0.9% 1,000 ML 100 ML IV ×2 (08:35→18:22)
[2022-02-11] MEDS: heparin 5,000 unit/mL INJ 1 mL 5000 UNIT SUBCUT ×2 (08:43→21:25)
[2022-02-11] MEDS: cetirizine 10 mg Tablet PEG-TUBE (09:58)
[2022-02-11] MEDS: polyethylene glycol 3350 Pkt 17 gm PO (09:58)
[2022-02-11] MEDS: benztropine 1 mg Tablet PEG-TUBE ×2 (09:59→18:07)
[2022-02-11] MEDS: docusate sodium 10 mg/mL (5ml) Liq 100 MG PEG-TUBE (09:59)
[2022-02-11 11:50] VITALS: BP 89/58; PULSE 70; RESP 18; TEMP 36.7; O2SAT 94
[2022-02-11] MEDS: NON-FORMULARY MEDICATION (Lactose-Reduced Food With Fibr [Jevity 1.5 Cal] 0.06 gram-1.5 kc 1.5 EACH FEED TUBE ×2 (13:54→18:07)
[2022-02-11 15:43] LABS: Glucose Point of Care 124 mg/dL (70-110)
[2022-02-11 15:59] VITALS: PULSE 82; RESP 18; TEMP 36.6; O2SAT 96
[2022-02-11 20:00] VITALS: BP 107/63; PULSE 64; PULSE 72; RESP 17; RESP 18; TEMP 36.6; O2SAT 95
--- NOTE | 2022-02-11 20:29 | PM.PN ---
Subjective Subjective: Makes eye contact, vocalizes, but difficult to understand. Appears to deny being in pain. Vitals/I&O/Wt Last Vital Signs Temp 97.9 F 02/11/22 20:00 Pulse 64 02/11/22 20:00 Resp 17 02/11/22 20:00 BP 107/63 02/11/22 20:00 Pulse Ox 96 02/11/22 15:59 02/11/22 02/11/22 02/11/22 06:59 14:59 22:59 Intake Total 1000 / 1000 975 / 1975 Output Total 790 / 790 300 / 1090 Balance 210 / 210 675 / 885 Weight last 48 hrs Weight 46.522 kg Weight 44.906 kg Physical Exam Const: COMMON NORMALS: alert GENERAL APPEARANCE: cooperative (With respiratory exam -takes deep breaths) ORIENTATION/CONSCIOUSNESS: Yes awake HENMT: COMMON NORMALS: normocephalic, EAC's normal and Normal external nose present HEAD & SCALP: normocephalic NOSE: Normal external nose present EXTERNAL AUDITORY CANAL: EAC's normal Neck/C-Spine: COMMON NORMALS: no meningeal signs Chest: CHEST: Yes Symmetrical chest wall rise Resp: COMMON NORMALS: clear to auscultation bilaterally AUSCULTATION: clear to auscultation bilaterally Cardio: COMMON NORMALS: regular rate, regular rhythm and No murmurs present (Cardio) RATE: regular rate RHYTHM: regular rhythm GI: COMMON NORMALS: Normal to inspection, nondistended, normoactive bowel sounds present, Soft to palpation and non-tender PALPATION: Yes Soft to palpation OTHER: PEG button Extremity: COMMON NORMALS: no pedal edema OTHER: Very thin, sarcopenia Contractures BL LE and hands and wrists Neuro: COMMON NORMALS: moves all extremities SENSORIUM/ORIENTATION: Yes alert MENINGEAL SIGNS: Yes no meningeal signs Psych: COMMON NORMALS: mental status grossly normal Skin: COMMON NORMALS: no wounds RASHES: no rashes Data : 02/11/22 01:49 02/11/22 01:49 A&P Assessment and plan (1) Adult failure to thrive: Appreciate dietitian assessment. Recommendation for yearly 1.06 cartons, 2 at breakfast, 12 point, 2 at dinner, 60 mL flushes before and after. If possible also recommended additional 300 fluid between feedings, monitoring helpful he feels. He has not been having p.o. intake., But requesting assessment by ELECTRICAL SUPERINTENDENT given some his depression. He reported to stem from lack of oral intake. Discussed with case management. After discussion with place of residence they would be adjusting to diet and fluid flushes as recommended. Home health care could be considered, but were obtained in the past was always discharged due to no additional services provided beyond facility provided care. Low BMI, sarcopenia. Has been having difficulties with gaining weight, although does appear to have gained some weight since June 2021. Overall last time his weight was higher was in April 2020. At that time weight 53.9 kg. TSH normal Status: Acute (2) Behavioral change: Appreciate psychiatry recommendations. Continue olanzapine. Sertraline may be added back later on. Recently with hyperactivity has not slept since Wednesday. Did get some sleep after receiving lorazepam in ER. CT of the head without intracranial hemorrhage or mass-effect. Mild small vessel changes. Mild parenchymal volume loss. Intracanal vascular calcification. No acute findings. Normal TSH Status: Acute (3) Hypotension: Improved after fluid boluses. Blood pressures remain soft, but not hypotensive. Per discussion with case management, facility of residence would be able to assess vital signs more frequently. Status: Acute (4) Rhabdomyolysis: Decreasing CK level. He is not able to provide ROS. Unremarkable troponin series. Status: Acute (5) Sarcopenia: As above Status: Acute Plan CP Multiple contractures: Chronic, continue range of motion MILI MDD Hiatal hernia Constipation Attestations Medical Necessity Statement*: Continue hospitalization for nutritional assessment and adjustment of nutrition due to failure to thrive, malnutrition, post discharge planning. Coding Level of Care Code Acute Regulatory Scientist for [facility] Fwd Diagnoses Adult failure to thrive R62.7 Behavioral change R46.89 Hypotension I95.9 Rhabdomyolysis M62.82 Sarcopenia M62.84
[2022-02-11] MEDS: OLANZapine 5 mg TABLET PO (21:25)
[2022-02-12] VITALS (7 sets, daily range): BP systolic 101–110; BP diastolic 59–68; PULSE 68–83; RESP 16–19; TEMP 36.5–37.3; O2SAT 91–97
[2022-02-12] MEDS: sodium chloride 0.9% 1,000 ML 100 ML IV ×2 (03:49→11:26)
[2022-02-12] MEDS: benztropine 1 mg Tablet PEG-TUBE (08:22)
[2022-02-12] MEDS: cetirizine 10 mg Tablet PEG-TUBE (08:22)
[2022-02-12] MEDS: polyethylene glycol 3350 Pkt 17 gm PO (08:22)
[2022-02-12] MEDS: docusate sodium 10 mg/mL (5ml) Liq 100 MG PEG-TUBE (08:22)
[2022-02-12] MEDS: heparin 5,000 unit/mL INJ 1 mL 5000 UNIT SUBCUT (08:26)
[2022-02-12] MEDS: NON-FORMULARY MEDICATION (Lactose-Reduced Food With Fibr [Jevity 1.5 Cal] 0.06 gram-1.5 kc 1.5 EACH FEED TUBE ×2 (09:00→14:39)
--- NOTE | 2022-02-12 14:39 | PC.NURSE ---
1.5 Jevity bottle will not scan. Told Nurse Digital Forensic Analyst this am and they will take care of it.
--- NOTE | 2022-02-12 16:22 | PC.NURSE ---
No need to call report per charge nurse. Sent patient with tanker driver from [facility] with all paperwork.
--- NOTE | 2022-02-12 20:30 | PM.DCS ---
Discharge Providers Date of Admission: 02/10/22 17:34 Date of Discharge: February 12, 2022 Attending Provider at Admission: Armaan Kong Attending Provider at Discharge: Armaan Kong Primary Care Provider: HARVINDER Finch Diagnoses at Discharge Discharge Diagnosis (1) Adult failure to thrive: Status: Acute (2) Behavioral change: Status: Acute (3) Hypotension: Status: Acute (4) Rhabdomyolysis: Status: Acute (5) Sarcopenia: Status: Acute Reason for Visit Reason for Visit: POSSIBLE MEDICATION REACTION Brief History: 56-year-old gentleman with CP, living at [facility] facility was brought in due to recently noted hyperactivity, unable to sleep since Wednesday, after medication changes with discontinuation of Zyprexa and was instead started on sertraline due to depression In ER with noted mild rhabdomyolysis, CK 488, given IV fluid boluses for hydration, with initially also low blood pressure, 94/50. Also noted low BMI.? Per discussion with his caregiver he has gained some weight recently.? He receives tube feeds with Jevity 1.5, with some available reports, 1-1.5 cartons 3 times a day, followed by water flush of 60 mL.? He is reported to be eating by mouth as well, and may also drink a soda can.? He is at risk of aspiration. He normally has his vitals checked once a month and as needed, though caregiver states they have not seen hypotension. He is afebrile, without leukocytosis.? Chest x-ray and UA without suggestion of infection.? BUN 24, creatinine 0.5. He is unable to provide history or ROS.? Very difficult to understand vocalizations. With diffuse contractures. No pressure wounds. Hospital Course Hospital Course He was placed in observation for additional assessment and disposition planning. He was seen by dietitian, with recommendation to tube feeds in accordance recommendation by dietitian, with Jevity 1.5, recommendation is for 5 cartons a day, in a 1-2-2 fashion to coordinate with his work schedule as well as 60 mL flush before and after each PEG tube feeding. An additional 300-500 mL extra fluid in between feedings would be recommended as long as he did not feel too full and they were appropriately taken to avoid aspiration. He was assessed by speech therapy as well, although preferred to continue oral intake as tolerating understanding the risks. She was additionally assessed by psychiatry given behavioral changes, insomnia, recent medication changes. He was resumed on Zyprexa, sertraline for now is helped. He is asked to follow-up with behavioral health care for additional assessment and consideration of addition of sertraline with continued Zyprexa. CT of the head, TSH noncontributory. Mild rhabdomyolysis improving with hydration, although noted CK elevated. Back in 2019. residential placement was considered. On presentation she was noted to be hypotensive, received fluid boluses. With concern for dehydration, also with sarcopenia, concern for malnutrition, however, per discussion with case management, caregivers, he in fact has gained some weight recently since having the PEG tube placed. With caregivers will continue following recommendations for adjustment of Giurgius, hydration, and recommendations are provided at discharge. He unfortunately has chronic contractures to going back as long as 10 years ago. Range of motion exercises were reported, and are not reinforced to be performed daily. However, he does not have pressure ulcers, and otherwise gets 24-hour supervision with a caregiver. Given hypotension presentation, soft blood pressures after corrected we are requesting that he continue with daily vitals, and notify RN or MD in case of low blood pressure. He reportedly also previously been getting discharged from home health given otherwise close supervision and care at the facility. Discussed with public guardian as well who also would like him to return to the facility, optimistic that with recommended adjustments should do well and will be following up on his condition. Physical Exam Const: COMMON NORMALS: alert GENERAL APPEARANCE: cooperative (With respiratory exam -takes deep breaths) ORIENTATION/CONSCIOUSNESS: Yes awake HENMT: COMMON NORMALS: normocephalic, EAC's normal and Normal external nose present HEAD & SCALP: normocephalic NOSE: Normal external nose present EXTERNAL AUDITORY CANAL: EAC's normal Neck/C-Spine: COMMON NORMALS: no meningeal signs Chest: CHEST: Yes Symmetrical chest wall rise Resp: COMMON NORMALS: clear to auscultation bilaterally AUSCULTATION: clear to auscultation bilaterally Cardio: COMMON NORMALS: regular rate, regular rhythm and No murmurs present (Cardio) RATE: regular rate RHYTHM: regular rhythm GI: COMMON NORMALS: Normal to inspection, nondistended, normoactive bowel sounds present, Soft to palpation and non-tender PALPATION: Yes Soft to palpation OTHER: PEG button Extremity: COMMON NORMALS: no pedal edema OTHER: Very thin limbs, contractures, sarcopenia Contractures BL LE and hands and wrists Neuro: COMMON NORMALS: moves all extremities SENSORIUM/ORIENTATION: Yes alert MENINGEAL SIGNS: Yes no meningeal signs Psych: COMMON NORMALS: mental status grossly normal Skin: COMMON NORMALS: no wounds RASHES: no rashes Discharge Data Studies Completed and Pending Completed Studies During Hospitalization Category Date Time Status CT head wo con* [id number] Stat Cat Scan 02/10/22 11:39 Completed XR chest 1V portable [id number] Stat Exams 02/10/22 11:04 Completed Radiology Impressions Chest X-Ray 02/10/22 11:04 IMPRESSION: No acute chest abnormality. Head CT 02/10/22 11:39 IMPRESSION: 1. No evidence of intracranial hemorrhage or mass effect. 2. . Mild small vessel changes. Mild parenchymal volume loss. 3. Intracanal vascular calcification. 4. No acute intracranial findings. Laboratory Results WBC 6.3 10^3/uL (4.0-10.0) 02/11/22 01:49 RBC 4.29 10^6/uL (4.1-5.3) 02/11/22 01:49 Hgb 13.1 g/dL (11.7-16.6) 02/11/22 01:49 Hct 41.2 % (42.0-52.0) L 02/11/22 01:49 MCV 96.0 fl (80-94) H D 02/11/22 01:49 MCH 30.5 pg (28.0-34.0) 02/11/22 01:49 MCHC 31.8 g/dL (30.0-36.0) 02/11/22 01:49 RDW 12.9 % (12.1-15.1) 02/11/22 01:49 Plt Count 248 10^3/cmm (130-400) 02/11/22 01:49 MPV 11.8 fL (7.4-10.4) H 02/11/22 01:49 Neut % (Auto) 55.0 % 02/11/22 01:49 Lymph % (Auto) 35.8 % 02/11/22 01:49 Bracken % (Auto) 7.8 % 02/11/22 01:49 Eos % (Auto) 0.8 % 02/11/22 01:49 Baso % (Auto) 0.3 % 02/11/22 01:49 Neut # (Auto) 3.44 10^3/uL (1.8-7.7) 02/11/22 01:49 Lymph # (Auto) 2.2 10^3/uL (0.8-4.8) 02/11/22 01:49 Bracken # (Auto) 0.5 10^3/uL (0.2-0.9) 02/11/22 01:49 Eos # (Auto) 0.1 10^3/uL (0.0-0.8) 02/11/22 01:49 Baso # (Auto) 0.0 10^3/uL (0.0-0.1) 02/11/22 01:49 Nucleated RBC % (auto) 0 % 02/11/22 01:49 Nucleated RBCs # 0.0 /100WBC 02/11/22 01:49 Sodium 145 mmol/L (136-145) 02/11/22 01:49 Potassium 4.3 mmol/L (3.5-5.1) 02/11/22 01:49 Chloride 112 mmol/L (98-107) H 02/11/22 01:49 Carbon Dioxide 25 mmol/L (22-29) 02/11/22 01:49 Anion Gap 12.3 (5-19) 02/11/22 01:49 BUN 19 mg/dL (6-20) 02/11/22 01:49 Creatinine 0.6 mg/dL (0.7-1.2) L 02/11/22 01:49 GFR Calculation 139.4 mL/min (90-130) H 02/11/22 01:49 Glucose 81 mg/dL (65-115) 02/11/22 01:49 POC Glucose 124 mg/dL (70-110) H 02/11/22 15:40 Calculated Osmolality 301 mOsm/kg (285-295) H 02/11/22 01:49 Calcium 8.9 mg/dL (8.5-10.5) 02/11/22 01:49 Magnesium 2.3 mg/dL (1.7-2.3) 02/10/22 11:15 Total Bilirubin 0.4 mg/dL (0.15-1.2) 02/10/22 11:15 AST 22 U/L (0-40) 02/10/22 11:15 ALT 21 U/L (0-41) 02/10/22 11:15 Alkaline Phosphatase 124 IU/L (40-130) 02/10/22 11:15 Creatine Kinase 309 U/L (39-308) H 02/11/22 01:49 Troponin T Baseline 14 ng/L (0-15) 02/10/22 20:53 Troponin T 120 Minute 15.50 ng/L (0-15) H 02/10/22 22:32 Delta Troponin T 1.50 ABS# (0-10) 02/10/22 22:32 Troponin T Hi Sens 6Hr 13.56 ng/L (0-15) 02/11/22 01:49 Troponin T Hi Sens 6Hr Delta -0.44 ng/L (0-12) L 02/11/22 01:49 Total Protein 7.6 g/dL (6.6-8.7) 02/10/22 11:15 Albumin 4.3 g/dL (3.5-5.2) 02/10/22 11:15 Globulin 3.3 g/dL (1.3-4.6) 02/10/22 11:15 Lipase 24 U/L (13-60) 02/10/22 11:15 TSH 1.02 uIU/mL (0.27-4.20) 02/10/22 20:53 Urine Color Yellow (Yellow) 02/10/22 12:15 Urine Appearance Clear (CLEAR) 02/10/22 12:15 Urine pH 6.5 (5-7) 02/10/22 12:15 Ur Specific [place] 1.020 (1.005-1.030) 02/10/22 12:15 Urine Protein Neg (Negative) 02/10/22 12:15 Urine Glucose (UA) 2+ (Normal) H 02/10/22 12:15 Urine Ketones 1+ (Negative) H 02/10/22 12:15 Urine Blood Neg (Negative) 02/10/22 12:15 Urine Nitrate Negative (Negative) 02/10/22 12:15 Urine Bilirubin Neg (Negative) 02/10/22 12:15 Urine Urobilinogen 1 mg/dL (Negative) H 02/10/22 12:15 Ur Leukocyte Esterase Negative (Negative) 02/10/22 12:15 Vitals Last Vital Signs Temp 98.3 F 02/12/22 16:24 Pulse 82 02/12/22 16:24 Resp 16 02/12/22 16:24 BP 102/65 02/12/22 16:24 Pulse Ox 91 02/12/22 16:24 Discharge Plan Discharge Patient Disposition: Home Condition: Stable Prescriptions: New Zyprexa 5 mg tablet 5 mg PO QPM Qty: 30 0RF Continued (DME) Wrist Brace Misc See Rx Instructions .ROUTE .MEDSUPPLY Qty: 2 0RF Rx Instructions: daily as needed (DME) Complex Power Tilt & Recline Wheelchairs See Rx Instructions .Route .MEDSUPPLY Qty: 1 0RF Rx Instructions: As directed Jevity 1.5 Moses 0.06 gram-1.5 kcal/mL liquid See Rx Instructions PO .COMPLEX Qty: 1000 0RF Rx Instructions: 1.5 carton 7:30,1430, 1800 PO; zinc oxide 20 % ointment 1 applic topical TID PRN (Reason: skin irritation) Qty: 60 0RF albuterol sulfate [Ventolin HFA] 90 mcg/actuation HFA aerosol inhaler 2 puff INHALATION Q6H PRN (Reason: Shortness Of Breath) Qty: 8.5 0RF (DME) Mobility Power Chair See Rx Instructions .Route .MEDSUPPLY Qty: 1 0RF Rx Instructions: As directed pt requires new power mobility chair [id number] months acetaminophen 325 mg tablet 325 mg PO QID PRN (Reason: Pain) Qty: 30 5RF docusate sodium [Docu] 50 mg/5 mL liquid 100 mg PO BID Qty: 1800 1RF lactulose 10 gram/15 mL (15 mL) solution See Rx Instructions PO .COMPLEX PRN (Reason: Constipation) Qty: 600 0RF Rx Instructions: 15ml every 48 hours if no stool PO PRN; polyethylene glycol 3350 [Miralax] 17 gram/dose powder 17 g PO BID Qty: 850 5RF cetirizine 10 mg tablet 10 mg PO DAILY Qty: 30 5RF Rx Instructions: crush for G-tube flush in 30mL water. (DME) syringe (disposable) [Easy [place] Catheter Tip Syring] 60 mL syringe See Rx Instructions .Route Qty: 100 5RF Rx Instructions: As directed diazepam [Valium] 2 mg tablet 1 mg PO DIRECTED Qty: 30 3RF Rx Instructions: Take half tablet in morning and at 3 pm melatonin 5 mg tablet 5 mg PO .bedtime Qty: 90 2RF benztropine 1 mg tablet 1 mg PO BID Qty: 180 2RF Discontinued sertraline [Zoloft] 50 mg tablet 50 mg PO .morning Qty: 30 2RF Discharge Orders: Discharge Order (Routine); Ordered 02/12/22 Ordered By: Armaan Kong Referrals: Cindy Gotti, [employer] [Primary Care Provider] - 02/19/22 11:00 am Discharge Diet: As Directed and Start new tube feeds as directed Patient Instructions: Generalized Anxiety Disorder, Olanzapine (By mouth), Rhabdomyolysis (DC) Activity Restrictions/Additional Instructions: Zyprexa is resumed. Please follow-up with behavioral health care regarding depression and for consideration of resumption of sertraline in addition to Zyprexa. Please check vital signs daily, monitor blood pressures, notify nurse if blood pressure is 90/50 or below. Please change tube feeds in accordance recommendation by dietitian, with Jevity 1.5, recommendation is for 5 cartons a day, in a 1-2-2 fashion to coordinate with his work schedule as well as 60 mL flush before and after each PEG tube feeding. An additional 300-500 mL extra fluid in between feedings would be recommended as long as he did not feel too full and they were appropriately taken to avoid aspiration. Continue dietitian follow-up/reassessment on outpatient side. Continue speech therapy follow-up and reassessment on outpatient side. Daily range of motion of lower extremities to limit progression of contractures. Discharge Attestations Time Spent in Discharge Care*: greater than 30 min Quality Metrics Clinical Quality Measures [ No reported AMI, CVA or VTE this stay] Coding Level of Care Code Acute Chg FW DC note Diagnoses Adult failure to thrive R62.7 Behavioral change R46.89 Hypotension I95.9 Rhabdomyolysis M62.82 Sarcopenia M62.84
== END 2022-02-12 15:15 | disposition home or self-care (01) ==
LOC: ER 16:24 → MEDSURG 18:26
PROVIDERS: Admitting Provider Internal Medicine; Emergency Provider Family Medicine; PCP Nurse Practitioner; Visit Provider Internal Medicine
DX: R62.7 Adult failure to thrive (principal); I95.9 Hypotension, unspecified; M62.82 Rhabdomyolysis; M62.84 Sarcopenia; G80.9 Cerebral palsy, unspecified; F41.1 Generalized anxiety disorder; F33.41 Major depressive disorder, recurrent, in partial remission; F41.8 Other specified anxiety disorders
CPT/HCPCS: 36415; 36416; 70450; 71045; 80048; 80053; 81003; 82550; 82962; 83690; 83735; 84443; 84484; 85025; 92523; 92610; 93005; 96365; 96372; 96375; 99285; C1751; G0378; J1644; J2060; J7030

== ENCOUNTER → 2022-03-11 11:04 | Outpatient (BNVA) | payer MEDICARE, MEDICAID, SELFPAY | PROVIDERS: PCP Nurse Practitioner; Visit Provider Nurse Practitioner Psychiatric/Mental Health | DX: F33.41 Major depressive disorder, recurrent, in partial remission (principal); F41.8 Other specified anxiety disorders; F41.1 Generalized anxiety disorder; G80.9 Cerebral palsy, unspecified | CPT/HCPCS: 99214 ==

== ENCOUNTER → 2022-07-29 11:46 | Outpatient (BNVA) | payer MEDICARE, MEDICAID, OTHER, SELFPAY | PROVIDERS: PCP Nurse Practitioner; Visit Provider Nurse Practitioner Psychiatric/Mental Health | DX: F33.41 Major depressive disorder, recurrent, in partial remission (principal); F41.8 Other specified anxiety disorders; F41.1 Generalized anxiety disorder; G80.9 Cerebral palsy, unspecified; Z79.899 Other long term (current) drug therapy | CPT/HCPCS: 80053; 80061; 83036 ==

== ENCOUNTER → 2022-12-02 09:23 | Outpatient (BNVA) | payer MEDICARE, MEDICAID, SELFPAY | PROVIDERS: PCP Nurse Practitioner; Visit Provider Nurse Practitioner | DX: R05.9 Cough, unspecified (principal); K59.01 Slow transit constipation; L89.309 Pressure ulcer of unspecified buttock, unspecified stage; E55.9 Vitamin D deficiency, unspecified; Z13.6 Encounter for screening for cardiovascular disorders; Z12.5 Encounter for screening for malignant neoplasm of prostate; F33.41 Major depressive disorder, recurrent, in partial remission; F41.8 Other specified anxiety disorders; Z93.1 Gastrostomy status | CPT/HCPCS: 80053; 80061; 82306; 82607; 84443; 85025; G0103 ==

== ENCOUNTER → 2023-06-23 11:28 | Outpatient (BNVA) | payer MEDICARE, OTHER, SELFPAY | PROVIDERS: PCP Nurse Practitioner; Visit Provider Nurse Practitioner Psychiatric/Mental Health | DX: Z79.899 Other long term (current) drug therapy (principal); F33.41 Major depressive disorder, recurrent, in partial remission; F41.8 Other specified anxiety disorders; F41.1 Generalized anxiety disorder; G80.9 Cerebral palsy, unspecified | CPT/HCPCS: 80061; 83036 ==

== ENCOUNTER → 2023-12-08 10:17 | Outpatient (BNVA) | payer MEDICARE, MEDICAID, SELFPAY | PROVIDERS: PCP Nurse Practitioner; Visit Provider Nurse Practitioner | DX: R62.7 Adult failure to thrive (principal) | CPT/HCPCS: 80053; 85025 ==

== ENCOUNTER 2024-01-05 09:40 | Outpatient (CLI) | payer MEDICARE, MEDICAID, SELFPAY ==
--- NOTE | 2024-01-05 10:00 | FL_ITS ---
WS: [id number] EXAMINATION: FL barium swallow modifd [id number] ORDER DATE: 01/05/2024 9:46 AM REASON FOR EXAM: R62.7 - Adult failure to thrive COMPARISON: None available. FLUOROSCOPY TIME: 1min [phone] # OF SPOT FILMS: 10 FINDINGS: There is poor oral motor control with delayed swallowing There was pooling within the vallecula There was penetration and aspiration with nectar consistency. IMPRESSION: Poorly coordinated swallowing mechanism with aspiration Please see speech pathology note for full explanation of findings and recommendations.
== END 2024-01-05 09:41 | disposition home or self-care (01) ==
LOC: RAD 09:40
PROVIDERS: PCP Nurse Practitioner; Visit Provider Nurse Practitioner
DX: R62.7 Adult failure to thrive (principal); Z93.1 Gastrostomy status
CPT/HCPCS: 74230; 92611

== ENCOUNTER 2024-03-29 12:32 | Outpatient (CLI) | payer MEDICARE, MEDICAID, SELFPAY ==
[2024-03-29 13:36] LABS: Estmated Average Glucose 105; Hemoglobin A1C 5.3 % (4.0-6.0)
[2024-03-29 14:40] LABS: Chol HDL Ratio 3.02 mg/dL (1.0-5.00); Cholesterol 163 mg/dL (0-200); HDL Cholesterol 54 mg/dL (60-100); LDL Cholesterol Calculated 91 mg/dL (50-129); LDL HDL Ratio 1.69 RATIO (0.00-3.22); Triglycerides 88 mg/dL (0-150)
== END 2024-03-29 12:33 | disposition home or self-care (01) ==
LOC: LAB 12:34
PROVIDERS: PCP Nurse Practitioner; Visit Provider Nurse Practitioner Psychiatric/Mental Health
DX: Z79.899 Other long term (current) drug therapy (principal)
CPT/HCPCS: 36415; 80061; 83036

== ENCOUNTER → 2024-09-13 09:30 | Outpatient (BNVA) | payer MEDICARE, SELFPAY | PROVIDERS: PCP Nurse Practitioner; Visit Provider Clinical Nurse Specialist Adult Health | DX: R82.90 Unspecified abnormal findings in urine (principal); R50.9 Fever, unspecified | CPT/HCPCS: 81000; 87086 ==

== ENCOUNTER → 2024-12-27 09:47 | Outpatient (BNVA) | payer MEDICARE, OTHER, SELFPAY | PROVIDERS: PCP Nurse Practitioner; Visit Provider Nurse Practitioner | DX: Z12.5 Encounter for screening for malignant neoplasm of prostate (principal); Z13.6 Encounter for screening for cardiovascular disorders | CPT/HCPCS: 80053; 80061; 85025; G0103 ==

== ENCOUNTER → 2025-01-03 10:46 | Outpatient (BNVA) | payer MEDICARE, SELFPAY | PROVIDERS: PCP Nurse Practitioner; Visit Provider Podiatrist Foot & Ankle Surgery | DX: I73.9 Peripheral vascular disease, unspecified (principal); L60.3 Nail dystrophy | CPT/HCPCS: 11721; 99203 ==

== ENCOUNTER → 2025-03-07 10:46 | Outpatient (BNVA) | payer MEDICARE, MEDICAID, SELFPAY | PROVIDERS: PCP Nurse Practitioner; Visit Provider Podiatrist Foot & Ankle Surgery | DX: I73.9 Peripheral vascular disease, unspecified (principal); L60.3 Nail dystrophy | CPT/HCPCS: 11721 ==

== ENCOUNTER → 2025-05-02 08:57 | Outpatient (BNVA) | payer MEDICARE, OTHER, SELFPAY | PROVIDERS: PCP Nurse Practitioner; Visit Provider Nurse Practitioner | DX: Z79.899 Other long term (current) drug therapy (principal) | CPT/HCPCS: 80061; 83036 ==

== ENCOUNTER → 2025-05-16 10:48 | Outpatient (BNVA) | payer MEDICARE, SELFPAY | PROVIDERS: PCP Nurse Practitioner; Visit Provider Podiatrist Foot & Ankle Surgery | DX: I73.9 Peripheral vascular disease, unspecified (principal); L60.3 Nail dystrophy | CPT/HCPCS: 11721 ==

== ENCOUNTER → 2025-06-13 11:36 | Outpatient (BNVA) | payer MEDICARE, SELFPAY | PROVIDERS: PCP Nurse Practitioner; Visit Provider Nurse Practitioner | DX: Z93.1 Gastrostomy status (principal); I73.9 Peripheral vascular disease, unspecified; Z68.1 Body mass index [BMI] 19.9 or less, adult; E46 Unspecified protein-calorie malnutrition; E55.9 Vitamin D deficiency, unspecified | CPT/HCPCS: 80053; 82306; 82607; 84443; 85025 ==

== ENCOUNTER 2025-06-27 11:40 | Outpatient (RCR) | payer MEDICARE, MEDICAID, SELFPAY ==
--- NOTE | 2025-06-27 11:48 | XR_ITS ---
WS: [email or web address] Exam: XR abdomen 1V* [id number] Date/Time of Exam: 06/27/2025 11:48 AM Reason For Exam: R15.9 - Full incontinence of feces DLP: Comparison 12/05/2020. Very large rectal fecal impaction noted. Significant stool retention throughout the remaining colon. No bowel obstruction or free air. Signs of prior cholecystectomy. Postoperative changes in the LEFT abdomen. Levorotoscoliosis of the lumbar spine. 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 XR/XR abdomen 1V* [id number] IMPRESSION: 1. Very large rectal fecal impaction. Significant amount retained stool in the remaining colon. No acute process in the abdomen. 2. Additional chronic findings as above.
== END 2025-07-03 23:59 | disposition home or self-care (01) ==
LOC: APT 11:40
PROVIDERS: PCP Nurse Practitioner; Visit Provider Nurse Practitioner
DX: G80.8 Other cerebral palsy (principal)
CPT/HCPCS: 74018

== ENCOUNTER → 2025-07-02 09:22 | Outpatient (BNVA) | payer MEDICARE, MEDICAID, SELFPAY | PROVIDERS: PCP Nurse Practitioner; Visit Provider Nurse Practitioner | DX: K56.41 Fecal impaction (principal); G80.9 Cerebral palsy, unspecified; Z93.1 Gastrostomy status | CPT/HCPCS: 74018 ==

== ENCOUNTER 2025-07-16 09:35 | Outpatient (CLI) | payer MEDICARE, MEDICAID, SELFPAY ==
--- NOTE | 2025-07-16 09:43 | XR_ITS ---
WS: [email or web address] XR abdomen 1V* [id number] REASON FOR EXAM: K59.04 - Chronic idiopathic constipation FINDINGS: Severe rotatory levoscoliosis. Severe deformity of both hips. Gastrostomy balloon is within the air in the body and fundus of the stomach unchanged compared to 07/02/2025. Moderate stool retention in the right and left colons. Moderate gaseous distention of the transverse colon. Moderate volume stool retention in redundant sigmoid and large volume rectal retention. No significant small bowel distention. No free air. XR/XR abdomen 1V* [id number] IMPRESSION: Stool retention as above. No free air.
== END 2025-07-16 09:36 | disposition home or self-care (01) ==
LOC: RAD 09:38
PROVIDERS: PCP Nurse Practitioner; Visit Provider Nurse Practitioner
DX: K59.04 Chronic idiopathic constipation (principal); M41.86 Other forms of scoliosis, lumbar region
CPT/HCPCS: 74018

== ENCOUNTER 2025-08-01 08:54 | Outpatient (RCR) | payer MEDICARE, MEDICAID, SELFPAY | END 2025-08-03 23:59 | disposition home or self-care (01) | LOC: APT 08:54 | PROVIDERS: PCP Nurse Practitioner; Visit Provider Nurse Practitioner | DX: G80.8 Other cerebral palsy (principal) | CPT/HCPCS: 97110; 97161; 97530 ==

== ENCOUNTER → 2025-08-08 10:58 | Outpatient (BNVA) | payer MEDICARE, MEDICAID, SELFPAY | PROVIDERS: PCP Nurse Practitioner; Visit Provider Podiatrist Foot & Ankle Surgery | DX: I73.9 Peripheral vascular disease, unspecified (principal); L60.3 Nail dystrophy; L60.8 Other nail disorders | CPT/HCPCS: 11721 ==

== ENCOUNTER → 2025-08-23 13:34 | Outpatient (BNVA) | payer MEDICARE, MEDICAID, SELFPAY | PROVIDERS: PCP Nurse Practitioner; Visit Provider Nurse Practitioner | DX: K59.04 Chronic idiopathic constipation (principal); M41.9 Scoliosis, unspecified | CPT/HCPCS: 74018 ==

== ENCOUNTER 2025-08-29 11:48 | Outpatient (RCR) | payer MEDICARE, MEDICAID, SELFPAY | END 2025-09-02 23:59 | disposition home or self-care (01) | LOC: APT 11:48 | PROVIDERS: PCP Nurse Practitioner; Visit Provider Nurse Practitioner | DX: G80.8 Other cerebral palsy (principal) | CPT/HCPCS: 97110 ==

== ENCOUNTER 2025-09-05 15:08 | Outpatient (RCR) | payer MEDICARE, MEDICAID, SELFPAY | END 2025-10-03 23:59 | disposition home or self-care (01) | LOC: APT 15:08 | PROVIDERS: PCP Nurse Practitioner; Visit Provider Nurse Practitioner | DX: G80.8 Other cerebral palsy (principal) | CPT/HCPCS: 97110 ==